=== PATIENT | female | born 1955 | race Hispanic/Latino ===

== ENCOUNTER 2016-10-27 22:11 | Emergency (ER) | payer OTHER ==
[~2016-10-27] VITALS: Ht 157.5 cm; Wt 80.8 kg
[~2016-10-27 22:11] MED LIST: ACID CONTROL MA20 MG PO; ACIPHEX20 MG OR; ACIPHEX20 MG PO; AMLODIPINE5 MG PO; AMOXICILLIN500 MG PO; AMOXICILLIN875 MG OR; BACTRIM DS1 TAB PO; BACTROBAN2 % EX; BENADRYL 50MG C50 MG PO; BL ADULT ASA81 MG OR; CARAFATE OR; CARAFATE1 GM/10 M1; CARAFATE1 GM/10 ML PO; CHOLESTEROL MED; CIPRO500 MG OR; COMBIVENT IN; DOES NOT KNOW MEDS; DOXYCYCL HYC100 MG PO; ELIMITE5 % EX; GLIPIZIDE10 MG PO; GLUCOPHAGE1000 MG OR; GLUCOPHAGE1000 MG PO; GLYBURID MCR3 MG OR; GLYCRON3 MG OR; Glucotrol PO; HELIDAC OR; HYDROCORTISONE30 GM TD; HYDROXYZ HCL25 MG OR; HYDROXYZ HCL25 MG PO; KEFLEX500 MG OR; LIDOCAINE5 % EX; LISINOPRIL10 MG OR; LISINOPRIL10 MG PO; LISINOPRIL20 MG PO; MEDDOSEPAK PO; MELOXICAM15 MG PO; METFORMIN500 MG PO; METRONIDAZOL500 MG PO; MONISTAT 3 COMB1 KI1 VA; MOTRIN800 MG/TAB PO; NORVASC PO; NOVOLIN 70/30 SC; PEPCID20 MG PO; PERCOCET 5/325M1 TAB OR; PREVACID15 M1 OR; PREVACID30 M2 OR; PREVPAC OR; PRILOSEC OTC20 MG OR; PRILOSEC20 MG OR; PRILOSEC20 MG PO; PRILOSEC20 MG/CAP PO; PROMETHAZINE25 MG OR; PROTONIX40 M2 PO; PROTONIX40 MG PO; RANITIDINE150 M1 OR; REGLAN10 MG OR; REGLAN10 MG PO; RELION 70/30 SC; ROBITUSS11 OR; SIMVASTATIN20 MG PO; TIZANIDINE4 MG PO; ULTRAM50 M1 OR; ULTRAM50 M1 PO; ULTRAM50 MG OR; ULTRAM50 MG PO; VISTARIL 50MG C50 MG OR; ZANTAC150 M1 OR; ZPAK PO; [UNRECOGNIZED DRUG - REMARK]; [UNRECOGNIZED DRUG - REMARK]
[2016-10-27] MEDS ORDERED: LISINOPRIL20 M1 PO (22:25)
[2016-10-27 23:22] LABS: IMMATURE GRANULOCYTES 0.1 % (0.0-1.0); MEAN CELL VOLUME 89.2 fL CALC (80.0-100.0); MEAN CORPUSCULAR HGB 29.7 pG CALC (26.0-32.0); MEAN CORPUSCULAR HGB CONC 33.3 g/L CALC (32.0-36.0); NEUT# 4.02 thou/uL (2.00-7.15); RED BLOOD COUNT 4.37 mill/uL (4.20-5.60); RED CELL DISTRI WIDTH 12.5 % (11.5-15.5)
[2016-10-27 23:42] LABS: ALBUMIN 4.2 g/dL (3.2-5.0); ALKALINE PHOSPHATASE 102 u/l (38-126); ANION GAP 17 (6-22 (CALC)); BILIRUBIN, TOTAL 0.3 mg/dL (0.0-1.4); BUN 18 mg/dL (7-17); BUN/CREATININE RATIO 26 (12-20 (CALC)); CALCIUM 9.9 mg/dL (8.4-10.2); CARBON DIOXIDE 25 mmol/l (22-30); CHLORIDE 100 mmol/l (95-108); CREATININE 0.7 mg/dL (0.5-1.0); GFR > 60 ML/MIN (>=60 (CALC)); GFR FOR AFR.AMER. > 60 ML/MIN (>=60 (CALC)); GLUCOSE 251 mg/dL (65-105); POTASSIUM 3.9 mmol/l (3.5-5.1); SGOT/AST 24 u/l (14-36); SGPT/ALT 41 u/l (9-52); SODIUM 138 mmol/l (137-146); TOTAL PROTEIN 7.1 g/dL (6.3-8.2)
[2016-10-27 23:58] VITALS: BP 157/87
== END 2016-10-27 23:59 | disposition home or self-care (01) | DRG 639 ==
LOC: ED 22:11
PROVIDERS: Emergency Medicine
DX: E11.65 Type 2 diabetes mellitus with hyperglycemia (principal); Z79.84 Long term (current) use of oral hypoglycemic drugs

== ENCOUNTER 2017-01-19 05:57 | Emergency (ER) | payer OTHER ==
[~2017-01-19] VITALS: Ht 157.5 cm; Wt 81.8 kg
[~2017-01-19 05:57] MED LIST changes: +LISINOPRIL20 M1 PO
[2017-01-19 08:06] LABS: HEMOGLOBIN 13.5 g/dl (12.0-16.0); IMMATURE GRANULOCYTES 0.4 % (0.0-1.0); MEAN CELL VOLUME 89.3 fL CALC (80.0-100.0); MEAN CORPUSCULAR HGB 30.1 pG CALC (26.0-32.0); MEAN CORPUSCULAR HGB CONC 33.8 g/L CALC (32.0-36.0); NEUT# 9.05 thou/uL (2.00-7.15); RED BLOOD COUNT 4.48 mill/uL (4.20-5.60); RED CELL DISTRI WIDTH 12.6 % (11.5-15.5)
[2017-01-19 08:24] LABS: ALKALINE PHOSPHATASE 106 u/l (38-126); ANION GAP 16 (6-22 (CALC)); BILIRUBIN, TOTAL 0.6 mg/dL (0.0-1.4); BUN 17 mg/dL (7-17); BUN/CREATININE RATIO 21 (12-20 (CALC)); CALCIUM 9.3 mg/dL (8.4-10.2); CARBON DIOXIDE 25 mmol/l (22-30); CHLORIDE 99 mmol/l (95-108); CREATININE 0.8 mg/dL (0.5-1.0); GFR > 60 ML/MIN (>=60 (CALC)); GFR FOR AFR.AMER. > 60 ML/MIN (>=60 (CALC)); GLUCOSE 374 mg/dL (65-105); POTASSIUM 4.1 mmol/l (3.5-5.1); SGOT/AST 28 u/l (14-36); SGPT/ALT 44 u/l (9-52); SODIUM 136 mmol/l (137-146); TOTAL PROTEIN 7.5 g/dL (6.3-8.2)
[2017-01-19 08:32] LABS: MYOGLOBIN 113 ng/mL (0 - 62)
[2017-01-19] MEDS ORDERED: TRAMADOL HYDROC50 MG PO (08:46)
[2017-01-19 09:24] VITALS: BP 134/74
== END 2017-01-19 09:24 | disposition home or self-care (01) | DRG 552 ==
LOC: ED 05:57
PROVIDERS: Emergency Medicine
DX: S16.1XXA Strain of muscle, fascia and tendon at neck level, initial encounter (principal); E11.65 Type 2 diabetes mellitus with hyperglycemia; I10 Essential (primary) hypertension; S20.219A Contusion of unspecified front wall of thorax, initial encounter; S80.212A Abrasion, left knee, initial encounter; S80.211A Abrasion, right knee, initial encounter; J45.909 Unspecified asthma, uncomplicated; V49.40XA Driver injured in collision with unspecified motor vehicles in traffic accident, initial encounter; Z79.84 Long term (current) use of oral hypoglycemic drugs

== ENCOUNTER 2017-07-19 18:39 | Emergency (ER) | payer OTHER ==
[~2017-07-19] VITALS: Ht 157.5 cm; Wt 85.0 kg
[~2017-07-19 18:39] MED LIST changes: +TRAMADOL HYDROC50 MG PO
[2017-07-19] MEDS ORDERED: ULTRAM50 M1 PO (20:04)
[2017-07-19 20:25] VITALS: BP 143/83
[2017-07-21] MEDS ORDERED: TESSALON PERLE100 MG PO (13:02)
== END 2017-07-19 20:25 | disposition home or self-care (01) | DRG 605 ==
LOC: ED 18:39
DX: S90.32XA Contusion of left foot, initial encounter (principal); E11.9 Type 2 diabetes mellitus without complications; I10 Essential (primary) hypertension; K21.9 Gastro-esophageal reflux disease without esophagitis; W13.2XXA Fall from, out of or through roof, initial encounter; Y92.008 Other place in unspecified non-institutional (private) residence as the place of occurrence of the external cause

== ENCOUNTER 2017-07-22 11:10 | Emergency (ER) | payer OTHER ==
[~2017-07-22] VITALS: Ht 157.5 cm; Wt 87.7 kg
[~2017-07-22 11:10] MED LIST changes: +TESSALON PERLE100 MG PO
[2017-07-22] MEDS ORDERED: BUTRANS10 MCG/HR TD (12:53)
[2017-07-22] MEDS ORDERED: ATORVASTATIN CA80 MG PO (12:53)
[2017-07-22] MEDS ORDERED: INVOKANA300 MG PO (12:56)
[2017-07-22] MEDS ORDERED: LEVEMIR100 UNIT/M SC (12:58)
[2017-07-22] MEDS ORDERED: LISINOPRIL20 M1 PO (12:59)
[2017-07-22] MEDS ORDERED: METFORMIN500 MG PO (13:00)
[2017-07-22] MEDS ORDERED: OMEPRAZOLE10 MG PO (13:01)
[2017-07-22 13:06] LABS: URINE BILIRUBIN - DIPSTICK NEGATIVE (NEGATIVE); URINE BLOOD DIPSTICK NEGATIVE (NEGATIVE); URINE COLOR YELLOW; URINE GLUCOSE - DIPSTICK 250 mg/dL (NEGATIVE); URINE KETONE NEGATIVE (NEGATIVE); URINE LEUK ESTERASE NEGATIVE (NEGATIVE); URINE NITRITE - DIPSTICK NEGATIVE (Negative); URINE PH 5.5 (4.5-8.0); URINE PROTEIN - DIPSTICK NEGATIVE (NEG-TRACE); URINE SPECIFIC GRAVITY 1.025; URINE UROBILINOGEN - DIPSTICK 0.2 E.U./dL (0.2)
[2017-07-22 13:09] LABS: URINE CLARITY CLEAR
[2017-07-22 13:10] LABS: HEMATOCRIT 44.1 % (37.0-47.0); HEMOGLOBIN 14.5 g/dl (12.0-16.0); IMMATURE GRANULOCYTES 1.7 % (0.0-1.0); MEAN CELL VOLUME 89.6 fL CALC (80.0-100.0); MEAN CORPUSCULAR HGB 29.5 pG CALC (26.0-32.0); MEAN CORPUSCULAR HGB CONC 32.9 g/L CALC (32.0-36.0); NEUT# 8.16 thou/uL (2.00-7.15); RED BLOOD COUNT 4.92 mill/uL (4.20-5.60); RED CELL DISTRI WIDTH 12.6 % (11.5-15.5)
[2017-07-22 13:29] LABS: ALBUMIN 4.6 g/dL (3.2-5.0); ALKALINE PHOSPHATASE 142 u/l (38-126); ANION GAP 19 (6-22 (CALC)); BILIRUBIN, TOTAL 0.5 mg/dL (0.0-1.4); BUN 19 mg/dL (8-23); BUN/CREATININE RATIO 25 (12-20 (CALC)); CARBON DIOXIDE 29 mmol/l (22-30); CHLORIDE 95 mmol/l (95-108); CREATININE 0.8 mg/dL (0.5-1.0); GFR > 60 ML/MIN (>=60 (CALC)); GFR FOR AFR.AMER. > 60 ML/MIN (>=60 (CALC)); LIPASE 123 u/l (23-300); POTASSIUM 4.2 mmol/l (3.5-5.1); SGOT/AST 36 u/l (9-36); SGPT/ALT 35 u/l (11-66); SODIUM 139 mmol/l (137-146); TOTAL PROTEIN 8.7 g/dL (6.3-8.2)
[2017-07-22] MEDS ORDERED: BENTYL10 MG PO (14:57)
[2017-07-22] MEDS ORDERED: ZOFRAN4 MG/TAB PO (14:57)
[2017-07-22 15:08] VITALS: BP 140/71
== END 2017-07-22 15:22 | disposition home or self-care (01) | DRG 392 ==
LOC: ED 11:10
PROVIDERS: Emergency Medicine
DX: K52.9 Noninfective gastroenteritis and colitis, unspecified (principal); K21.9 Gastro-esophageal reflux disease without esophagitis; R10.84 Generalized abdominal pain; R11.2 Nausea with vomiting, unspecified
CPT/HCPCS: Q9967

== ENCOUNTER 2017-08-14 00:06 | Inpatient (IN) | payer OTHER ==
[~2017-08-14] VITALS: Ht 157.5 cm; Wt 84.2 kg
[~2017-08-14 00:06] MED LIST changes: +ATORVASTATIN CA80 MG PO; +BENTYL10 MG PO; +BUTRANS10 MCG/HR TD; +INVOKANA300 MG PO; +LEVEMIR100 UNIT/M SC; +OMEPRAZOLE10 MG PO; +ZOFRAN4 MG/TAB PO
--- NOTE | 2017-08-14 00:06 | NUR ---
PT TO ROOM 9 BY EMS FOR CONTINUED PAIN TO LEFT FOOT S/P FALL 4 WEEKS AGO. PT HAS APPOINTMENT WITH ASSISTANT PARALEGAL ON TUE.
--- NOTE | 2017-08-14 00:40 | NUR ---
CLEANSED TOE WITH ALCOHOL PRIOR TO COLLECTING CULTURE AND SKIN SLUFFED OFF WHILE CLEANING. DR VILLATORO AWARE AND CHECKED TOE WHILE XRAY IN ROOM
--- NOTE | 2017-08-14 00:48 | NUR ---
PT NOT VERY KNOWLEDGEABLE ABOUT MEDICATIONS. STATES INSULIN THAT STARTS WITH A L, B/P MED THAT STARTS WITH L, PILL WITH G FOR DIABETES AND STATED SHE CANT TAKE THAT MUCH METFORM SHE TAKES 1000MG PILL AND CUTS IT IN HALF AND TAKES TWICE A DAY.
[2017-08-14 00:51] LABS: IMMATURE GRANULOCYTES 0.3 % (0.0-1.0); MEAN CELL VOLUME 88.9 fL CALC (80.0-100.0); MEAN CORPUSCULAR HGB CONC 32.6 g/L CALC (32.0-36.0); NEUT# 4.63 thou/uL (2.00-7.15); RED BLOOD COUNT 4.24 mill/uL (4.20-5.60); RED CELL DISTRI WIDTH 12.4 % (11.5-15.5)
[2017-08-14 00:53] LABS: HEMATOCRIT 37.7 % (37.0-47.0); HEMOGLOBIN 12.3 g/dl (12.0-16.0)
[2017-08-14 01:13] LABS: ALBUMIN 3.6 g/dL (3.2-5.0); ALKALINE PHOSPHATASE 111 u/l (38-126); ANION GAP 14 (6-22 (CALC)); BILIRUBIN, TOTAL 0.3 mg/dL (0.0-1.4); BUN 13 mg/dL (8-23); BUN/CREATININE RATIO 20 (12-20 (CALC)); CARBON DIOXIDE 27 mmol/l (22-30); CHLORIDE 100 mmol/l (95-108); CREATININE 0.7 mg/dL (0.5-1.0); GFR > 60 ML/MIN (>=60 (CALC)); GFR FOR AFR.AMER. > 60 ML/MIN (>=60 (CALC)); POTASSIUM 4.2 mmol/l (3.5-5.1); SGOT/AST 16 u/l (9-36); SGPT/ALT 26 u/l (11-66); SODIUM 136 mmol/l (137-146); TOTAL PROTEIN 6.9 g/dL (6.3-8.2)
--- NOTE | 2017-08-14 01:47 | NUR ---
REPORT GIVEN TO ASHLEIGH SOLIS. IV ZOSYN UP ALONG WITH FLUIDS.
--- NOTE | 2017-08-14 01:54 | NUR ---
Admission Note Report Given to: ASHLEIGH SOLIS Transported by: Wheelchair X Stretcher Transported with: X Nurse Transporter X Patent IV O2 Drying And Winding Supervisor
[2017-08-14 02:05] VITALS: BP 147/82
--- NOTE | 2017-08-14 02:10 | NUR ---
WHILE TAKING PT UPSTAIRS PT AND SHE ATTEMPTED TO STAND TO GET ON SCALE THE LEFT LOWER LEG UP TO MID [place]. PT WOULD NOT STAND ON LEFT FOOT AT ALL DUE TO PAIN. IRMA INQUIRED ABOUT PAIN MEDICATION, DR VILLATORO INFORMED ABOUT INFORMATION WILL ORDER MORPHINE FOR PAIN AND REQUESTED DOPPLER TO FOOT.
--- NOTE | 2017-08-14 02:30 | NUR ---
UNSUCCESFUL IN OBTAINING PULSE BY DOPPLER OR PALPATION. PALPABLE PULSE TO RIGHT FOOT. DR VILLATORO INFORMED.
--- NOTE | 2017-08-14 03:00 | NUR ---
PATIENT ADMITTED FROM ER VIA STRETCHER WITH ER STAFF IN ATTENDANCE. PATIENT ATTEMPTED TO TRANSFER FROM STRETCHER TO STANDING SCALE BUT WAS UNABLE DUE TO SEVERE LEFT FOOT PAIN. PATIENT ASSISTED TO BED-AWAKE ALERT AND ORIENTEDX3. PATIENT STATES THAT SHE CALL 911 TONIGHT DUE TO SEVERE LEFT FOOT/TOE PAIN. LEFT FOOT WAS INJURED SEVERAL WEEKS AGO AND PAIN GOT WORSE TODAY/TONIGHT. PAIN IS 10/10 ON PAIN SCALE WHEN FOOT IS DEPENDANT. LEFT FOOT IS COLD TO TOUCH AND UNABLE TO PALPATE OR DOPLER LEFT PEDAL PULSE. LEFT FOOT WITH SMALL ABRASION TO LEFT 5TH DIGIT-PHOTO TAKEN AND PLACED IN CHART. COVERED WITH BANDAID. LEFT FOOT ELEVATED ON PILLOW. LEFT POST POPLITEAL PULSE IS PRESENT. RIGHT FOOT IS WARM WITH GOOD PEDAL PULSE. IV SITE TO LEFT AC INTACT AND REDRESS DUE TO LEAKAGE AT SITE AND IVF NS PATENT AND INFUSING AT 125CC/HR. ZOSYN INFUSING ORDERED. IV SITE IS HEALTHY WITH GOOD BLOOD RETURN. PATIENT LUNGS ARE CLEAR. LAST B M WAS Tuesday08/13/17. VOIDING QS YELLOW URINE ON BSC. PATIENT AND S/O ORIENTED TO ROOM AND SUROUNDINGS-INSTRUCTED ON USE OF NURSE CALL LIGHT SYSTEM, TV REMOTE AND PHONE. SAFETY PRECAUTIONS REINFORCED.CALL LIGHT IN REACH. WILL CONT TO MONITOR.
[2017-08-14 04:35] VITALS: BP 167/93
--- NOTE | 2017-08-14 04:52 | NUR ---
PATIENT RESTING IN BED. ASSISTED TO BSC TO VOID AND THEN BACK TO BED. AGAIN LEFT FOOT IS VERY PAINFUL-THROBBING PAIN 10/10 WHEN DEPENDANT. FOOT IS NOT COLD EARLIER BUT STILL NO PEDAL PULSE PRESENT. ASSISTED BACK TO BED AND LEFT FOOT ELEVATED. MEDICATED FOR PAIN WITH MORPHINE 2MG IVP ORDERED FOR PAIN. PATIENT WITH HX OF MRSA AND NASAL SWAB WAS OBTAINED AND SENT TO LAB. CONTACT PRECAUTIONS IN PLACE. CALL LIGHT IN REACH. WILL CONT TO MONITOR.
[2017-08-14 07:17] VITALS: BP 158/76
--- NOTE | 2017-08-14 07:25 | NUR ---
RECEIVED BEDSIDE REPORT FROM IRMA SOTELO. RESTING IN SUPINE POSITION WITH LEFT FOOT ELEVATED ON PILLOW. RESPS EVEN AND UNLABORED ON ROOM AIR. #20 LAC INFUSING WITHOUT DIFFICULTY, SITE APPEARS HEALTHY. REPORTS PAIN CONTINUES IN LEFT FOOT, WILL MEDICATE PER MAR. PLAN OF CARE DISCUSSED. SAFETY PRECAUTIONS REINFORCED. VISITOR AT BEDSIDE. BED IN LOWEST POSITION WITH WHEELS LOCKED. CALL LIGHT WITHIN REACH. ENCOURAGED PT AND VISITOR TO CALL FOR ANY NEEDS.
--- NOTE | 2017-08-14 09:25 | NUR ---
DR FREY AT BEDSIDE, NEW ORDERS RECEIVED.
[2017-08-14 10:02] LABS: CHOLESTEROL HDL RATIO 5.5 (<4.4 (CALC))
--- NOTE | 2017-08-14 10:05 | NUR ---
TO ULTRASOUND IN STABLE CONDITION VIA WHEELCHAIR ACCOMPANIED BY NICOLE OLIVAS.
--- NOTE | 2017-08-14 10:40 | NUR ---
RETURNED FROM ULTRASOUND VIA WHEELCHAIR ACCOMPANIED BY NICOLE OLIVAS.
--- NOTE | 2017-08-14 16:07 | NUR ---
IN HIGH FOWLERS WITH LEFT FOOT ELEVATED ON PILLOWS, VISITOR AT BEDSIDE. RESPS EVEN AND UNLABORED ON ROOM AIR. VOICES NO NEEDS AT THIS TIME. CALL LIGHT WITHIN REACH. WILL CONTINUE TO MONITOR.
[2017-08-14 16:30] VITALS: BP 139/83
[2017-08-14 20:00] VITALS: BP 145/77
--- NOTE | 2017-08-14 20:18 | NUR ---
PT IN BED WITH EYES CLOSED, RESPONDS EASILY TO VERBAL COMMAND, A/O X3, RESPIRATIONS EVEN AND UNLABORED ON RA. C/O LEFT FOOT PAIN 8/10, TRAMADOL PROVIDED PER DR'S ORDERS. PO FLUIDS PROVIDED. ENCOURAGED TO USE CALL LIGHT FOR ASSISTANCE. WILL CONTINUE TO MONITOR.
--- NOTE | 2017-08-14 23:16 | NUR ---
PATIENT RESTING IN BED WITH LEFT FOOT ELEVATED ON PILLOW. AWAKE ALERT AND ORIENTEDX3. LEFT FOOT WITHOUT PALPABLE PEDAL PULSE, NO SWELLING NOTED. DISCOLORATION TO 5TH DIGIT AND SIDE OF THE LEFT FOOT. STILL IS PAINFUL. IV SITE TO LEFT AC INTACT WITH DOXYCYCLINE INFUSING AT THIS TIME. SITE APPEARS HEALTHY. SAFETY PRECAUTIONS REINFORCED. CALL LIGHT IN REACH. WILL CONT TO MONITOR.
--- NOTE | 2017-08-15 00:11 | NUR ---
PATIENT APPEARS SLEEPING AT THIS TIME WITH EYE CLOSED. CALL LIGHT IN REACH. WILL CONT TO MONITOR.
--- NOTE | 2017-08-15 03:51 | NUR ---
PATIENT APPEARS SLEEPING AT THIS TIME WITH EYES CLOSED AND RESP EVEN AND UNLABORED. LEFT FOOT REMAINS ELEVATED ON PILLOW. CALL LIGHT IN REACH. WILL CONT TO MONITOR.
[2017-08-15 04:18] VITALS: BP 160/81
[2017-08-15 04:38] LABS: ANION GAP 17 (6-22 (CALC)); BUN 13 mg/dL (8-23); BUN/CREATININE RATIO 18 (12-20 (CALC)); CARBON DIOXIDE 25 mmol/l (22-30); CHLORIDE 104 mmol/l (95-108); CREATININE 0.7 mg/dL (0.5-1.0); GFR > 60 ML/MIN (>=60 (CALC)); GFR FOR AFR.AMER. > 60 ML/MIN (>=60 (CALC)); POTASSIUM 4.1 mmol/l (3.5-5.1); SODIUM 141 mmol/l (137-146)
--- NOTE | 2017-08-15 04:38 | NUR ---
PATIENT RESTING IN BED-LAB WORK DRAWN. AWAKE ALERT AND ORIENTEDX3. PATIENT REQUESTING IV SITE CHANGE-PAINFUL AND IN THE AC-SITE D/C WITH CATH INTACT. NEW IV SITE STARTED TO LEFT FOREARM-#[id number] WITH GOOD BLOOD RETURN. PATIENT MEDICATED WITH ULTRAM 50MG PO FOR 10/10 NLEFT FOOT PAIN. LEFT FOOT REMAINS ELEVATED. PATIENT VOIDING QS YELLOW URINE IN BSC. SAFETY PRECAUTIONS REINFORCED. CALL LIGHT IN REACH. WILL CONT TO MONITOR.
[2017-08-15 04:46] LABS: HEMATOCRIT 36.3 % (37.0-47.0); HEMOGLOBIN 11.8 g/dl (12.0-16.0); MEAN CELL VOLUME 89.2 fL CALC (80.0-100.0); MEAN CORPUSCULAR HGB CONC 32.5 g/L CALC (32.0-36.0); RED BLOOD COUNT 4.07 mill/uL (4.20-5.60); RED CELL DISTRI WIDTH 12.5 % (11.5-15.5)
--- NOTE | 2017-08-15 06:08 | NUR ---
PATIENT UP TO THE BSC-LARGE FORMED LIGHT BROWN STOOL AND BACK TO THE BED. VOIDING QS YELLOW URINE. VOMITTED SMALL AMT OF YELLOW FLUID. RESTING IN BED WITH LEFT FOOT ELEVATED. PATIENT STATES NO RELIEFT FROM ULTRAM-STILL 10/10 ON PAIN SCALE. C/O LEFT FOOT PAIN AND NOW TOOTH PAIN. OFFERED MORPHINE BUT PATIENT REFUSED. CALL LIGHT IN REACH. WILL CONT TO MONITOR.
--- NOTE | 2017-08-15 07:15 | NUR ---
REPORT RECEIVED FROM ASHLEIGH SOLIS;PT RESTING IN SUPINE POSITION;INTRODUCED SELF TO PT AND POC DISCUSSED;LEFT FOOT ELEVATED ON X1 PILLOW,COOL TO TOUCH;PT DENIES ANY NEEDS AT THIS TIME AND IS ENCOURAGED TO CALL FOR ASSISTANCE IF NEEDED;FALL PRECAUTIONS IN PLACE WITH BED IN THE LOWEST POSITION;CONTACT PRECAUTIONS NOTED FOR HX OF MRSA;ENCOURAGED TO CALL FOR ASSISTANCE IF NEEDED;CALL LIGHT IN REACH;WILL CONTINUE TO MONITOR
[2017-08-15 08:09] VITALS: BP 137/87
--- NOTE | 2017-08-15 08:15 | NUR ---
PT RESTING IN SEMI FOWLERS POSITION;VS OBTAINED AND ASSESSMENT COMPLETED;RESPIRATIONS EVEN AND UNLABORED ON RA,CLEAR LUNG SOUNDS;ABDOMEN SOFT ON PALPATION AND ACTIVE IN ALL 4 QUADRANTS;STRONG PEDAL PULSE NOTED TO RIGHT FOOT;PEDAL PULSE TO LEFT FOOT UNABLE TO BE DOPPLERED,COOL AND PAINFUL TO TOUCH;ELEVATED ON X1 PILLOW;SMALL ABRASION NOTED TO LEFT FOOT;PAIN SCALE AND REPORTING EDUCATED AND PT VERBALIZES UNDERSTANDING;#22G TO LEFT FOREARM FLUSHED AND PATENT,SITE APPEARS HEALTHY;CONTACT PRECAUTIONS FOR HX OF MRSA IN PLACE;ALL SAFETY PRECAUTIONS REINFORCED;PT ENCOURAGED TO CALL FOR ASSISTANCE IF NEEDED;CALL LIGHT IN REACH;WILL CONTINUE TO MONITOR
--- NOTE | 2017-08-15 08:40 | NUR ---
OFFICE CALLED FOR CONSULT AND VOICEMAIL LEFT AT THIS TIME
[2017-08-15 09:17] LABS: MAGNESIUM 1.6 mg/dL (1.6-2.3)
--- NOTE | 2017-08-15 10:10 | NUR ---
IV SITE FOUND OCCULDED;SITE REMOVED WITH CATHETER INTACT AND NEW #22G STARTED TO RIGHT WRIST,FLUSHED AND PATENT;WILL CONTINUE TO MONITOR
--- NOTE | 2017-08-15 11:10 | NUR ---
SECOND VOICEMAIL LEFT FOR
--- NOTE | 2017-08-15 11:20 | NUR ---
PT RESTING IN SEMI FOWLERS POSITION;COMPLAINS OF IV SITE PAIN,SITE TO BE REMOVED PER PATIENT REQUEST;RESPIRATIONS EVEN AND UNLABORED ON RA;PT COMPLAINS OF LEFT FOOT PAIN RATING 8/10 ON THE PAIN SCALE BUT DENIES THE NEED FOR PAIN MEDICATION;CONTINUED ELEVATION OF LEFT FOOT;NEW IV SITE TO BE STARTED;FALL PRECAUTIONS IN PLACE;CALL LIGHT IN REACH;WILL CONTINUE TO MONITOR
[2017-08-15] MEDS ORDERED: METFORMIN1000 MG PO (12:13)
--- NOTE | 2017-08-15 12:32 | NUR ---
1 UNSUCCESSFUL ATTEMPT AT NEW IV SITE BY LIN MAHER RN;PT DENIES THE NEED FOR A NEW SITE STATING "THE OTHER ONE IS FINE";#22G TO RIGHT WRIST FLUSHED,PATENT,AND ABX RE-STARTED;WILL CONTINUE TO MONITOR
--- NOTE | 2017-08-15 13:20 | NUR ---
PT RE-POSITIONED BACK INTO BED WITH FAMILY AT BEDSIDE;PT AWARE OF PENDING TRANSFER TO [facility];ALL QUESTIONS ANSWERED;WILL CONTINUE TO MONITOR
--- NOTE | 2017-08-15 13:28 | NUR ---
Order for P.T. evaluation cancelled by AMANDA. Patient is being trenaferred to [facility].
--- NOTE | 2017-08-15 13:54 | NUR ---
ETA ON TRANSFER TO [facility] VIA [facility] 2 HOURS DUE TO MULTIPLE CRITICAL TRANSFERS OUT OF THE ED
[2017-08-15 15:00] VITALS: BP 135/71
--- NOTE | 2017-08-15 15:52 | NUR ---
PT TRANSFERRED IN STABLE CONDITION VIA [facility] TO [facility]
--- NOTE | 2017-08-15 16:05 | NUR ---
REPORT CALLED TO ASHLEIGH CARD AT [facility];PT TO BE TRANSFERRED TO ROOM 432
== END 2017-08-15 15:50 | DRG 300 ==
LOC: ED 00:06 → ED-I 01:19 → ED 01:26 → MS2 01:27
PROVIDERS: Emergency Medicine; Nurse Practitioner Family; ADMIT Internal Medicine; ATTEND Internal Medicine
DX: E11.52 Type 2 diabetes mellitus with diabetic peripheral angiopathy with gangrene (principal); I96 Gangrene, not elsewhere classified; E11.621 Type 2 diabetes mellitus with foot ulcer; E11.65 Type 2 diabetes mellitus with hyperglycemia; L03.116 Cellulitis of left lower limb; E11.628 Type 2 diabetes mellitus with other skin complications; L97.529 Non-pressure chronic ulcer of other part of left foot with unspecified severity; I10 Essential (primary) hypertension; K21.9 Gastro-esophageal reflux disease without esophagitis; M19.90 Unspecified osteoarthritis, unspecified site; F41.9 Anxiety disorder, unspecified; F32.9 Major depressive disorder, single episode, unspecified; S91.115A Laceration without foreign body of left lesser toe(s) without damage to nail, initial encounter; W19.XXXA Unspecified fall, initial encounter; Z79.4 Long term (current) use of insulin; Z87.891 Personal history of nicotine dependence
CPT/HCPCS: J1650

== ENCOUNTER 2017-08-30 19:56 | Emergency (ER) | payer OTHER ==
[~2017-08-30] VITALS: Ht 157.5 cm; Wt 81.8 kg
[~2017-08-30 19:56] MED LIST changes: +METFORMIN1000 MG PO
[2017-08-30] MEDS ORDERED: MOTRIN400 MG PO (21:39)
[2017-08-30] MEDS ORDERED: TRAMADOL HYDROC50 MG PO (21:39)
[2017-08-30] MEDS ORDERED: CEPHALEXIN500 M1 PO (21:39)
[2017-08-30 22:40] VITALS: BP 163/83
== END 2017-08-30 22:40 | disposition home or self-care (01) | DRG 603 ==
LOC: ED 19:56
DX: L03.032 Cellulitis of left toe (principal); M25.475 Effusion, left foot; M79.672 Pain in left foot; Z91.81 History of falling

== ENCOUNTER 2017-09-10 08:22 | Emergency (ER) | payer OTHER ==
[~2017-09-10] VITALS: Ht 157.5 cm; Wt 85.0 kg
[~2017-09-10 08:22] MED LIST changes: +CEPHALEXIN500 M1 PO; +MOTRIN400 MG PO
[2017-09-10 09:08] LABS: HEMATOCRIT 35.8 % (37.0-47.0); HEMOGLOBIN 11.6 g/dl (12.0-16.0); IMMATURE GRANULOCYTES 0.3 % (0.0-1.0); MEAN CELL VOLUME 88.6 fL CALC (80.0-100.0); MEAN CORPUSCULAR HGB 28.7 pG CALC (26.0-32.0); MEAN CORPUSCULAR HGB CONC 32.4 g/L CALC (32.0-36.0); NEUT# 4.31 thou/uL (2.00-7.15); RED BLOOD COUNT 4.04 mill/uL (4.20-5.60); RED CELL DISTRI WIDTH 13.2 % (11.5-15.5)
[2017-09-10 09:27] LABS: ALBUMIN 3.9 g/dL (3.2-5.0); ALKALINE PHOSPHATASE 92 u/l (38-126); AMYLASE 69 u/l (30-110); ANION GAP 16 (6-22 (CALC)); BILIRUBIN, TOTAL 0.4 mg/dL (0.0-1.4); BUN 10 mg/dL (8-23); BUN/CREATININE RATIO 17 (12-20 (CALC)); CARBON DIOXIDE 25 mmol/l (22-30); CHLORIDE 104 mmol/l (95-108); CREATININE 0.6 mg/dL (0.5-1.0); GFR > 60 ML/MIN (>=60 (CALC)); GFR FOR AFR.AMER. > 60 ML/MIN (>=60 (CALC)); LIPASE 88 u/l (23-300); POTASSIUM 4.1 mmol/l (3.5-5.1); SGOT/AST 26 u/l (9-36); SGPT/ALT 31 u/l (11-66); SODIUM 141 mmol/l (137-146); TOTAL PROTEIN 7.7 g/dL (6.3-8.2)
[2017-09-10 09:38] LABS: MYOGLOBIN 51 ng/mL (0 - 62)
[2017-09-10 09:57] LABS: URINE BILIRUBIN - DIPSTICK NEGATIVE (NEGATIVE); URINE BLOOD DIPSTICK NEGATIVE (NEGATIVE); URINE COLOR YELLOW; URINE GLUCOSE - DIPSTICK 100 mg/dL (NEGATIVE); URINE KETONE NEGATIVE (NEGATIVE); URINE LEUK ESTERASE NEGATIVE (NEGATIVE); URINE NITRITE - DIPSTICK NEGATIVE (Negative); URINE PH 5.5 (4.5-8.0); URINE PROTEIN - DIPSTICK TRACE mg/dL (NEG-TRACE); URINE SPECIFIC GRAVITY >=1.030; URINE UROBILINOGEN - DIPSTICK 0.2 E.U./dL (0.2)
[2017-09-10 10:14] LABS: URINE CLARITY CLEAR
[2017-09-10] MEDS ORDERED: TORADOL PO (10:17)
[2017-09-10 10:20] VITALS: BP 156/70
== END 2017-09-10 10:27 | disposition home or self-care (01) | DRG 313 ==
LOC: ED 08:22
PROVIDERS: Emergency Medicine
DX: R07.89 Other chest pain (principal); E11.9 Type 2 diabetes mellitus without complications; F32.9 Major depressive disorder, single episode, unspecified; F41.9 Anxiety disorder, unspecified; I10 Essential (primary) hypertension; K21.9 Gastro-esophageal reflux disease without esophagitis; M19.90 Unspecified osteoarthritis, unspecified site

== ENCOUNTER 2017-10-27 02:25 | Emergency (ER) | payer OTHER ==
[~2017-10-27] VITALS: Ht 157.5 cm; Wt 81.8 kg
[~2017-10-27 02:25] MED LIST changes: +TORADOL PO
[2017-10-27 03:14] LABS: HEMATOCRIT 36.7 % (37.0-47.0); IMMATURE GRANULOCYTES 0.4 % (0.0-1.0); MEAN CELL VOLUME 88.6 fL CALC (80.0-100.0); MEAN CORPUSCULAR HGB CONC 32.7 g/L CALC (32.0-36.0); NEUT# 4.4 thou/uL (2.00-7.15); RED BLOOD COUNT 4.14 mill/uL (4.20-5.60); RED CELL DISTRI WIDTH 13.4 % (11.5-15.5)
[2017-10-27 03:15] LABS: URINE BILIRUBIN - DIPSTICK NEGATIVE (NEGATIVE); URINE BLOOD DIPSTICK NEGATIVE (NEGATIVE); URINE COLOR YELLOW; URINE GLUCOSE - DIPSTICK NEGATIVE (NEGATIVE); URINE KETONE NEGATIVE (NEGATIVE); URINE LEUK ESTERASE NEGATIVE (NEGATIVE); URINE NITRITE - DIPSTICK NEGATIVE (Negative); URINE PROTEIN - DIPSTICK NEGATIVE (NEG-TRACE); URINE SPECIFIC GRAVITY <=1.005; URINE UROBILINOGEN - DIPSTICK 0.2 E.U./dL (0.2)
[2017-10-27 03:18] LABS: URINE CLARITY CLEAR
[2017-10-27 03:27] LABS: ALBUMIN 4.1 g/dL (3.2-5.0); ALKALINE PHOSPHATASE 102 u/l (38-126); ANION GAP 12 (6-22 (CALC)); BILIRUBIN, TOTAL 0.3 mg/dL (0.0-1.4); BUN 16 mg/dL (8-23); BUN/CREATININE RATIO 20 (12-20 (CALC)); CARBON DIOXIDE 26 mmol/l (22-30); CHLORIDE 104 mmol/l (95-108); CREATININE 0.8 mg/dL (0.5-1.0); GFR > 60 ML/MIN (>=60 (CALC)); GFR FOR AFR.AMER. > 60 ML/MIN (>=60 (CALC)); POTASSIUM 3.7 mmol/l (3.5-5.1); SGOT/AST 22 u/l (9-36); SGPT/ALT 32 u/l (11-66); SODIUM 138 mmol/l (137-146); TOTAL PROTEIN 7.4 g/dL (6.3-8.2)
[2017-10-27 03:37] LABS: MYOGLOBIN 51 ng/mL (0 - 62)
[2017-10-27 05:33] VITALS: BP 160/66
== END 2017-10-27 05:34 | disposition home or self-care (01) | DRG 149 ==
LOC: ED 02:25
PROVIDERS: Emergency Medicine
DX: R42 Dizziness and giddiness (principal); R51 Headache; M79.89 Other specified soft tissue disorders; K21.9 Gastro-esophageal reflux disease without esophagitis; K44.9 Diaphragmatic hernia without obstruction or gangrene; E11.9 Type 2 diabetes mellitus without complications; I10 Essential (primary) hypertension; F41.9 Anxiety disorder, unspecified; F32.9 Major depressive disorder, single episode, unspecified

== ENCOUNTER 2017-10-28 23:17 | Emergency (ER) | payer OTHER ==
[~2017-10-28] VITALS: Ht 157.5 cm; Wt 114.0 kg
[2017-10-29 00:03] LABS: HEMATOCRIT 34.1 % (37.0-47.0); IMMATURE GRANULOCYTES 0.3 % (0.0-1.0); MEAN CELL VOLUME 89.7 fL CALC (80.0-100.0); MEAN CORPUSCULAR HGB 28.9 pG CALC (26.0-32.0); MEAN CORPUSCULAR HGB CONC 32.3 g/L CALC (32.0-36.0); NEUT# 4.64 thou/uL (2.00-7.15); RED BLOOD COUNT 3.8 mill/uL (4.20-5.60); RED CELL DISTRI WIDTH 13.6 % (11.5-15.5)
[2017-10-29 00:23] LABS: ALBUMIN 3.9 g/dL (3.2-5.0); ALKALINE PHOSPHATASE 91 u/l (38-126); ANION GAP 12 (6-22 (CALC)); BILIRUBIN, TOTAL 0.2 mg/dL (0.0-1.4); BUN 18 mg/dL (8-23); BUN/CREATININE RATIO 21 (12-20 (CALC)); CARBON DIOXIDE 27 mmol/l (22-30); CHLORIDE 105 mmol/l (95-108); CREATININE 0.9 mg/dL (0.5-1.0); GFR > 60 ML/MIN (>=60 (CALC)); GFR FOR AFR.AMER. > 60 ML/MIN (>=60 (CALC)); POTASSIUM 3.8 mmol/l (3.5-5.1); SGOT/AST 30 u/l (9-36); SGPT/ALT 29 u/l (11-66); SODIUM 140 mmol/l (137-146); TOTAL PROTEIN 7.4 g/dL (6.3-8.2)
[2017-10-29 00:35] LABS: MYOGLOBIN 76 ng/mL (0 - 62)
[2017-10-29 01:20] LABS: URINE BILIRUBIN - DIPSTICK NEGATIVE (NEGATIVE); URINE BLOOD DIPSTICK NEGATIVE (NEGATIVE); URINE COLOR YELLOW; URINE GLUCOSE - DIPSTICK NEGATIVE (NEGATIVE); URINE KETONE NEGATIVE (NEGATIVE); URINE LEUK ESTERASE NEGATIVE (NEGATIVE); URINE NITRITE - DIPSTICK NEGATIVE (Negative); URINE PH 5.5 (4.5-8.0); URINE PROTEIN - DIPSTICK NEGATIVE (NEG-TRACE); URINE UROBILINOGEN - DIPSTICK 0.2 E.U./dL (0.2)
[2017-10-29 01:28] LABS: URINE CLARITY CLEAR
[2017-10-29 03:54] LABS: MYOGLOBIN 56 ng/mL (0 - 62)
[2017-10-29 04:13] VITALS: BP 149/75
== END 2017-10-29 04:24 | disposition home or self-care (01) | DRG 313 ==
LOC: ED 23:17
PROVIDERS: Emergency Medicine
DX: R07.89 Other chest pain (principal); E11.9 Type 2 diabetes mellitus without complications; I10 Essential (primary) hypertension; K21.9 Gastro-esophageal reflux disease without esophagitis; F41.9 Anxiety disorder, unspecified; F32.9 Major depressive disorder, single episode, unspecified

== ENCOUNTER 2017-10-30 22:39 | Emergency (ER) | payer OTHER ==
[~2017-10-30] VITALS: Ht 157.5 cm; Wt 86.0 kg
[2017-10-30 23:40] LABS: URINE BILIRUBIN - DIPSTICK NEGATIVE (NEGATIVE); URINE BLOOD DIPSTICK NEGATIVE (NEGATIVE); URINE CLARITY CLEAR; URINE COLOR YELLOW; URINE GLUCOSE - DIPSTICK NEGATIVE (NEGATIVE); URINE KETONE NEGATIVE (NEGATIVE); URINE LEUK ESTERASE NEGATIVE (NEGATIVE); URINE NITRITE - DIPSTICK NEGATIVE (Negative); URINE PROTEIN - DIPSTICK NEGATIVE (NEG-TRACE); URINE SPECIFIC GRAVITY >=1.030; URINE UROBILINOGEN - DIPSTICK 0.2 E.U./dL (0.2)
[2017-10-31 00:45] LABS: IMMATURE GRANULOCYTES 0.3 % (0.0-1.0); MEAN CELL VOLUME 90.1 fL CALC (80.0-100.0); MEAN CORPUSCULAR HGB 29.1 pG CALC (26.0-32.0); MEAN CORPUSCULAR HGB CONC 32.3 g/L CALC (32.0-36.0); NEUT# 9.64 thou/uL (2.00-7.15); RED BLOOD COUNT 4.67 mill/uL (4.20-5.60); RED CELL DISTRI WIDTH 13.9 % (11.5-15.5)
[2017-10-31 00:47] LABS: HEMATOCRIT 42.1 % (37.0-47.0); HEMOGLOBIN 13.6 g/dl (12.0-16.0)
[2017-10-31 01:13] LABS: ALBUMIN 3.7 g/dL (3.2-5.0); ALKALINE PHOSPHATASE 84 u/l (38-126); AMYLASE 61 u/l (30-110); ANION GAP 15 (6-22 (CALC)); BILIRUBIN, TOTAL 0.3 mg/dL (0.0-1.4); BUN 18 mg/dL (8-23); BUN/CREATININE RATIO 23 (12-20 (CALC)); CARBON DIOXIDE 24 mmol/l (22-30); CHLORIDE 103 mmol/l (95-108); CREATININE 0.8 mg/dL (0.5-1.0); GFR > 60 ML/MIN (>=60 (CALC)); GFR FOR AFR.AMER. > 60 ML/MIN (>=60 (CALC)); LIPASE 100 u/l (23-300); POTASSIUM 4.5 mmol/l (3.5-5.1); SGOT/AST 22 u/l (9-36); SGPT/ALT 32 u/l (11-66); SODIUM 138 mmol/l (137-146); TOTAL PROTEIN 6.9 g/dL (6.3-8.2)
[2017-10-31] MEDS ORDERED: PROTONIX40 MG PO (01:26)
[2017-10-31 01:45] VITALS: BP 137/87
== END 2017-10-31 01:45 | disposition home or self-care (01) | DRG 392 ==
LOC: ED 22:39
PROVIDERS: Emergency Medicine
DX: R10.13 Epigastric pain (principal); K21.9 Gastro-esophageal reflux disease without esophagitis; E11.9 Type 2 diabetes mellitus without complications; I10 Essential (primary) hypertension; F41.9 Anxiety disorder, unspecified; F32.9 Major depressive disorder, single episode, unspecified

== ENCOUNTER 2018-04-09 19:53 | Emergency (ER) | payer OTHER ==
[~2018-04-09] VITALS: Ht 157.5 cm; Wt 86.2 kg
[~2018-04-09 19:53] MED LIST changes: +NAPROSYN500 MG PO
[2018-04-09 21:10] LABS: URINE BILIRUBIN - DIPSTICK NEGATIVE (NEGATIVE); URINE BLOOD DIPSTICK NEGATIVE (NEGATIVE); URINE COLOR YELLOW; URINE GLUCOSE - DIPSTICK 250 mg/dL (NEGATIVE); URINE KETONE NEGATIVE (NEGATIVE); URINE LEUK ESTERASE NEGATIVE (NEGATIVE); URINE PH 5.5 (4.5-8.0); URINE PROTEIN - DIPSTICK 30 mg/dL (NEG-TRACE); URINE SPECIFIC GRAVITY 1.025; URINE UROBILINOGEN - DIPSTICK 0.2 E.U./dL (0.2)
[2018-04-09 21:11] LABS: HEMATOCRIT 42.2 % (37.0-47.0); HEMOGLOBIN 13.9 g/dl (12.0-16.0); IMMATURE GRANULOCYTES 0.3 % (0.0-5.0); MEAN CELL VOLUME 88.1 fL CALC (80.0-100.0); MEAN CORPUSCULAR HGB CONC 32.9 g/L CALC (32.0-36.0); NEUT# 8.49 thou/uL (2.00-7.15); RED BLOOD COUNT 4.79 mill/uL (4.20-5.60)
[2018-04-09 21:12] LABS: URINE CLARITY CLOUDY; URINE NITRITE - DIPSTICK POSITIVE (Negative)
[2018-04-09 21:23] LABS: ALBUMIN 3.8 g/dL (3.2-5.0); ALKALINE PHOSPHATASE 105 u/l (38-126); AMYLASE 51 u/l (30-110); ANION GAP 14 (6-22 (CALC)); BILIRUBIN, TOTAL 0.3 mg/dL (0.0-1.4); BUN 18 mg/dL (8-23); BUN/CREATININE RATIO 22 (12-20 (CALC)); CARBON DIOXIDE 25 mmol/l (22-30); CHLORIDE 103 mmol/l (95-108); CREATININE 0.8 mg/dL (0.5-1.0); GFR > 60 ML/MIN (>=60 (CALC)); GFR FOR AFR.AMER. > 60 ML/MIN (>=60 (CALC)); LIPASE 125 u/l (23-300); POTASSIUM 4.1 mmol/l (3.5-5.1); SGOT/AST 23 u/l (9-36); SODIUM 138 mmol/l (137-146); TOTAL PROTEIN 7.1 g/dL (6.3-8.2)
[2018-04-09 21:30] LABS: URINE BACTERIA MANY hpf; URINE SQUAMOUS EPITHELIAL CELL FEW EPI/hpf (0-FEW)
[2018-04-09] MEDS ORDERED: TORADOL PO (23:07)
[2018-04-09] MEDS ORDERED: PHENERGAN25 MG/TAB PO (23:07)
[2018-04-09] MEDS ORDERED: BACTRIM DS1 TAB PO (23:07)
[2018-04-09 23:28] VITALS: BP 135/69
== END 2018-04-09 23:28 | disposition home or self-care (01) ==
LOC: ED 19:53
PROVIDERS: Family Medicine
DX: K52.9 Noninfective gastroenteritis and colitis, unspecified (principal); N39.0 Urinary tract infection, site not specified; R10.84 Generalized abdominal pain; B96.89 Other specified bacterial agents as the cause of diseases classified elsewhere

== ENCOUNTER 2018-05-19 19:58 | Emergency (ER) | payer OTHER ==
[~2018-05-19] VITALS: Ht 157.5 cm; Wt 81.8 kg
[~2018-05-19 19:58] MED LIST changes: +PHENERGAN25 MG/TAB PO
[2018-05-19 20:45] VITALS: BP 153/87
== END 2018-05-19 20:45 | disposition home or self-care (01) ==
LOC: ED 19:58
DX: M19.071 Primary osteoarthritis, right ankle and foot (principal); E11.9 Type 2 diabetes mellitus without complications; I10 Essential (primary) hypertension; F41.9 Anxiety disorder, unspecified; F32.9 Major depressive disorder, single episode, unspecified; K21.9 Gastro-esophageal reflux disease without esophagitis; K25.9 Gastric ulcer, unspecified as acute or chronic, without hemorrhage or perforation; M79.671 Pain in right foot

== ENCOUNTER 2018-05-23 18:36 | Emergency (ER) | payer OTHER ==
[~2018-05-23] VITALS: Ht 157.5 cm; Wt 86.4 kg
[2018-05-23 19:21] LABS: HEMATOCRIT 38.6 % (37.0-47.0); HEMOGLOBIN 12.3 g/dl (12.0-16.0); IMMATURE GRANULOCYTES 0.2 % (0.0-5.0); MEAN CORPUSCULAR HGB 28.7 pG CALC (26.0-32.0); MEAN CORPUSCULAR HGB CONC 31.9 g/L CALC (32.0-36.0); NEUT# 6.32 thou/uL (2.00-7.15); RED BLOOD COUNT 4.29 mill/uL (4.20-5.60); RED CELL DISTRI WIDTH 13.2 % (11.5-15.5)
[2018-05-23 19:34] LABS: ANION GAP 16 (6-22 (CALC)); BUN 17 mg/dL (8-23); BUN/CREATININE RATIO 24 (12-20 (CALC)); CARBON DIOXIDE 26 mmol/l (22-30); CHLORIDE 102 mmol/l (95-108); CREATININE 0.7 mg/dL (0.5-1.0); GFR > 60 ML/MIN (>=60 (CALC)); GFR FOR AFR.AMER. > 60 ML/MIN (>=60 (CALC)); POTASSIUM 4.6 mmol/l (3.5-5.1); SODIUM 140 mmol/l (137-146)
[2018-05-23 20:52] LABS: ACT PARTIAL THROMBO TIME 24.4 SECONDS (20.0-32.5); INTERNATIONAL NORMALIZED RATIO 0.9 RATIO (0.7-1.3); PROTHROMBIN TIME 9.5 SECONDS (9.0-12.5)
[2018-05-24 00:30] VITALS: BP 159/75
== END 2018-05-24 00:30 ==
LOC: ED 18:36
PROVIDERS: Emergency Medicine; Family Medicine
DX: I73.9 Peripheral vascular disease, unspecified (principal); M79.661 Pain in right lower leg; M79.671 Pain in right foot; I10 Essential (primary) hypertension
CPT/HCPCS: J1644

== ENCOUNTER 2018-07-14 17:14 | Emergency (ER) | payer OTHER ==
[~2018-07-14] VITALS: Ht 157.5 cm; Wt 89.0 kg
[2018-07-14] MEDS ORDERED: XARELTO10 MG PO (18:25)
[2018-07-14] MEDS ORDERED: TRAMADOL HYDROC50 MG PO (18:42)
[2018-07-14 18:43] VITALS: BP 159/77
== END 2018-07-14 18:52 | disposition home or self-care (01) ==
LOC: ED 17:14
DX: S80.11XA Contusion of right lower leg, initial encounter (principal); Z89.611 Acquired absence of right leg above knee; W18.30XA Fall on same level, unspecified, initial encounter; Y93.01 Activity, walking, marching and hiking; Y92.009 Unspecified place in unspecified non-institutional (private) residence as the place of occurrence of the external cause; M54.2 Cervicalgia; R51 Headache; M54.5 Low back pain; G89.29 Other chronic pain; Z79.01 Long term (current) use of anticoagulants

== ENCOUNTER 2019-03-25 22:31 | Emergency (ER) | payer OTHER ==
[~2019-03-25] VITALS: Ht 157.5 cm; Wt 81.8 kg
[~2019-03-25 22:31] MED LIST changes: +CYCLOBENZAPR10 MG PO; +GLIPIZIDE ER10 M1 PO; +HUMULIN 70/30 SC; +HYDROCODONE/ACE1 TAB PO; +LANTUS100 UNIT/M; +METHOCARBAMOL500 MG PO; +NORVASC5 M1 PO; +PROAIR HFA108 MCG/AC IN; +XARELTO10 MG PO; +XARELTO20 MG PO
[2019-03-25 23:20] LABS: HEMATOCRIT 42.5 % (37.0-47.0); HEMOGLOBIN 12.8 g/dl (12.0-16.0); IMMATURE GRANULOCYTES 0.1 % (0.0-5.0); MEAN CELL VOLUME 92.4 fL CALC (80.0-100.0); MEAN CORPUSCULAR HGB 27.8 pG CALC (26.0-32.0); MEAN CORPUSCULAR HGB CONC 30.1 g/L CALC (32.0-36.0); NEUT# 4.44 thou/uL (2.00-7.15); RED BLOOD COUNT 4.6 mill/uL (4.20-5.60); RED CELL DISTRI WIDTH 13.4 % (11.5-15.5)
[2019-03-25 23:36] LABS: ALBUMIN 4.2 g/dL (3.2-5.0); ALKALINE PHOSPHATASE 113 u/l (38-126); AMYLASE 54 u/l (30-110); ANION GAP 17 (6-22 (CALC)); BILIRUBIN, TOTAL 0.3 mg/dL (0.0-1.4); BUN 18 mg/dL (8-23); BUN/CREATININE RATIO 22 (12-20 (CALC)); CARBON DIOXIDE 25 mmol/l (22-30); CHLORIDE 100 mmol/l (95-108); CREATININE 0.8 mg/dL (0.5-1.0); GFR > 60 ML/MIN (>=60 (CALC)); GFR FOR AFR.AMER. > 60 ML/MIN (>=60 (CALC)); POTASSIUM 3.8 mmol/l (3.5-5.1); SGOT/AST 33 u/l (9-36); SODIUM 138 mmol/l (137-146); TOTAL PROTEIN 7.5 g/dL (6.3-8.2)
[2019-03-26 00:26] LABS: URINE BILIRUBIN - DIPSTICK NEGATIVE (NEGATIVE); URINE BLOOD DIPSTICK SMALL (NEGATIVE); URINE COLOR YELLOW; URINE GLUCOSE - DIPSTICK >=1000 mg/dL (NEGATIVE); URINE KETONE NEGATIVE (NEGATIVE); URINE NITRITE - DIPSTICK NEGATIVE (Negative); URINE PROTEIN - DIPSTICK NEGATIVE (NEG-TRACE); URINE SPECIFIC GRAVITY 1.015; URINE UROBILINOGEN - DIPSTICK 0.2 E.U./dL (0.2)
[2019-03-26 00:27] LABS: URINE LEUK ESTERASE SMALL (NEGATIVE)
[2019-03-26 00:36] LABS: URINE BACTERIA MANY hpf; URINE SQUAMOUS EPITHELIAL CELL FEW EPI/hpf (0-FEW); URINE WBC 20-50 WBC/hpf (0-5)
[2019-03-26] MEDS ORDERED: MIRALAX3350 N1 PO (00:48)
[2019-03-26] MEDS ORDERED: BACTRIM DS1 TAB PO (00:48)
[2019-03-26 00:50] VITALS: BP 186/81
[2019-03-27] MEDS ORDERED: ATORVASTATIN CA80 MG PO (14:57)
[2019-03-27] MEDS ORDERED: PANTOPRAZOLE SO40 M1 PO (15:06)
[2019-03-27] MEDS ORDERED: XARELTO20 MG PO (15:07)
== END 2019-03-26 00:51 | disposition home or self-care (01) ==
LOC: ED 22:31
PROVIDERS: Family Medicine
DX: N39.0 Urinary tract infection, site not specified (principal); K59.00 Constipation, unspecified

== ENCOUNTER 2019-04-05 06:41 | Day surgery (SDC) | payer OTHER ==
[~2019-04-05 06:41] MED LIST changes: +MIRALAX3350 N1 PO; +PANTOPRAZOLE SO40 M1 PO
[2019-04-05 09:24] VITALS: BP 140/64
== END 2019-04-05 09:35 | disposition home or self-care (01) ==
LOC: ENDO 06:41 → ORM 08:00 → ENDO 09:35
PROVIDERS: ATTEND Surgery
DX: K21.9 Gastro-esophageal reflux disease without esophagitis (principal); K44.9 Diaphragmatic hernia without obstruction or gangrene; K52.9 Noninfective gastroenteritis and colitis, unspecified; E11.9 Type 2 diabetes mellitus without complications; I10 Essential (primary) hypertension; Z79.4 Long term (current) use of insulin

== ENCOUNTER 2019-04-18 20:09 | Emergency (ER) | payer OTHER ==
[~2019-04-18] VITALS: Ht 157.5 cm; Wt 81.0 kg
[2019-04-18 21:33] LABS: HEMATOCRIT 40.2 % (37.0-47.0); HEMOGLOBIN 12.7 g/dl (12.0-16.0); IMMATURE GRANULOCYTES 0.3 % (0.0-5.0); MEAN CELL VOLUME 89.1 fL CALC (80.0-100.0); MEAN CORPUSCULAR HGB 28.2 pG CALC (26.0-32.0); MEAN CORPUSCULAR HGB CONC 31.6 g/L CALC (32.0-36.0); NEUT# 6.38 thou/uL (2.00-7.15); RED BLOOD COUNT 4.51 mill/uL (4.20-5.60); RED CELL DISTRI WIDTH 13.3 % (11.5-15.5); URINE BILIRUBIN - DIPSTICK NEGATIVE (NEGATIVE); URINE BLOOD DIPSTICK SMALL (NEGATIVE); URINE COLOR YELLOW; URINE GLUCOSE - DIPSTICK >=1000 mg/dL (NEGATIVE); URINE KETONE NEGATIVE (NEGATIVE); URINE LEUK ESTERASE TRACE (NEGATIVE); URINE NITRITE - DIPSTICK NEGATIVE (Negative); URINE PH 5.5 (4.5-8.0); URINE PROTEIN - DIPSTICK NEGATIVE (NEG-TRACE); URINE UROBILINOGEN - DIPSTICK 0.2 E.U./dL (0.2)
[2019-04-18 21:43] LABS: URINE SQUAMOUS EPITHELIAL CELL FEW EPI/hpf (0-FEW); URINE WBC 0-2 WBC/hpf (0-5)
[2019-04-18] MEDS ORDERED: LOTRISONE EX (22:10)
[2019-04-18 22:46] VITALS: BP 164/72
== END 2019-04-18 22:56 | disposition home or self-care (01) ==
LOC: ED 20:09
PROVIDERS: Family Medicine
DX: E11.65 Type 2 diabetes mellitus with hyperglycemia (principal); B37.2 Candidiasis of skin and nail; I10 Essential (primary) hypertension; Z79.4 Long term (current) use of insulin

== ENCOUNTER 2019-06-27 | Emergency (ER) | payer OTHER ==
[~2019-06-27] MED LIST changes: +LOTRISONE EX
[2019-06-27 04:40] LABS: HEMOGLOBIN 12.1 g/dl (12.0-16.0); IMMATURE GRANULOCYTES 0.1 % (0.0-5.0); MEAN CELL VOLUME 86.9 fL CALC (80.0-100.0); MEAN CORPUSCULAR HGB 28.4 pG CALC (26.0-32.0); MEAN CORPUSCULAR HGB CONC 32.7 g/L CALC (32.0-36.0); NEUT# 4.48 thou/uL (2.00-7.15); RED BLOOD COUNT 4.26 mill/uL (4.20-5.60); RED CELL DISTRI WIDTH 13.2 % (11.5-15.5)
[2019-06-27 04:56] LABS: URINE BILIRUBIN - DIPSTICK NEGATIVE (NEGATIVE); URINE BLOOD DIPSTICK TRACE-INTACT (NEGATIVE); URINE COLOR YELLOW; URINE GLUCOSE - DIPSTICK NEGATIVE (NEGATIVE); URINE KETONE NEGATIVE (NEGATIVE); URINE NITRITE - DIPSTICK NEGATIVE (Negative); URINE UROBILINOGEN - DIPSTICK 0.2 E.U./dL (0.2)
[2019-06-27 04:58] LABS: ALBUMIN 3.9 g/dL (3.2-5.0); ALKALINE PHOSPHATASE 90 u/l (38-126); ANION GAP 11 (6-22 (CALC)); BILIRUBIN, TOTAL 0.3 mg/dL (0.0-1.4); BUN 15 mg/dL (8-23); BUN/CREATININE RATIO 22 (12-20 (CALC)); CARBON DIOXIDE 27 mmol/l (22-30); CHLORIDE 104 mmol/l (95-108); CREATININE 0.7 mg/dL (0.5-1.0); GFR > 60 ML/MIN (>=60 (CALC)); GFR FOR AFR.AMER. > 60 ML/MIN (>=60 (CALC)); POTASSIUM 3.5 mmol/l (3.5-5.1); SGOT/AST 35 u/l (9-36); SODIUM 139 mmol/l (137-146); TOTAL PROTEIN 7.2 g/dL (6.3-8.2)
[2019-06-27 05:03] LABS: URINE LEUK ESTERASE LARGE (NEGATIVE); URINE PROTEIN - DIPSTICK NEGATIVE (NEG-TRACE)
[2019-06-27 05:04] LABS: URINE EPITHELIAL CELLS MODERATE EPI/hpf (0-FEW); URINE WBC 20-50 WBC/hpf (0-5)
[2019-06-27 05:05] LABS: URINE BACTERIA MODERATE hpf
[2019-06-27 05:10] LABS: MYOGLOBIN 59 ng/mL (0 - 62)
[2019-06-27] MEDS ORDERED: DIFLUCAN150 MG PO (05:13)
[2019-06-27] MEDS ORDERED: CEPHALEXIN500 MG PO (05:13)
[2019-10-08] MEDS ORDERED: FLEXERIL PO (07:31)
[2019-10-08] MEDS ORDERED: HYDROCHLOROT12.5 MG PO (07:32)
[2019-10-08] MEDS ORDERED: FAMOTIDINE20 M1 PO (07:32)
[2019-10-08] MEDS ORDERED: GLIPIZIDE10 MG PO (07:32)
[2019-10-08] MEDS ORDERED: METHOCARBAMOL500 MG PO (07:33)
[2019-10-08] MEDS ORDERED: LISINOPRIL20 MG PO (07:33)
[2019-10-08] MEDS ORDERED: IBUPROFEN600 MG PO (07:33)
[2019-10-08] MEDS ORDERED: XARELTO10 MG PO (07:34)
== END 2019-06-27 06:36 | disposition home or self-care (01) ==
PROVIDERS: Emergency Medicine
DX: E11.65 Type 2 diabetes mellitus with hyperglycemia (principal); I10 Essential (primary) hypertension; T50.916A Underdosing of multiple unspecified drugs, medicaments and biological substances, initial encounter; Z91.128 Patient's intentional underdosing of medication regimen for other reason; Z79.4 Long term (current) use of insulin

== ENCOUNTER 2020-05-29 22:37 | Emergency (ER) | payer OTHER ==
[~2020-05-29] VITALS: Ht 157.5 cm; Wt 82.0 kg
[~2020-05-29 22:37] MED LIST changes: +CEPHALEXIN500 MG PO; +DIFLUCAN150 MG PO; +FAMOTIDINE20 M1 PO; +FLEXERIL PO; +HYDROCHLOROT12.5 MG PO; +IBUPROFEN600 MG PO
[2020-05-29 23:48] LABS: HEMATOCRIT 38.6 % (37.0-47.0); HEMOGLOBIN 12.2 g/dl (12.0-16.0); IMMATURE GRANULOCYTES 0.2 % (0.0-5.0); MEAN CELL VOLUME 89.8 fL CALC (80.0-100.0); MEAN CORPUSCULAR HGB 28.4 pG CALC (26.0-32.0); MEAN CORPUSCULAR HGB CONC 31.6 g/dL CAL (32.0-36.0); NEUT# 6.21 thou/uL (2.00-7.15); RED BLOOD COUNT 4.3 mill/uL (4.20-5.60)
[2020-05-30 00:13] LABS: ALBUMIN 3.7 g/dL (3.2-5.0); ALKALINE PHOSPHATASE 116 u/l (38-126); ANION GAP 13 (6-22 (CALC)); BILIRUBIN, TOTAL 0.3 mg/dL (0.0-1.4); BUN 10 mg/dL (8-23); BUN/CREATININE RATIO 14 (12-20 (CALC)); CARBON DIOXIDE 25 mmol/l (22-30); CHLORIDE 102 mmol/l (95-108); CREATININE 0.7 mg/dL (0.5-1.0); GFR > 60 ML/MIN (>=60 (CALC)); GFR FOR AFR.AMER. > 60 ML/MIN (>=60 (CALC)); POTASSIUM 3.8 mmol/l (3.5-5.1); SGOT/AST 31 u/l (9-36); SODIUM 136 mmol/l (137-146)
[2020-05-30] MEDS ORDERED: NOVOLIN R100 UNIT/M SC (00:19)
[2020-05-30 00:29] VITALS: BP 157/91
== END 2020-05-30 00:29 | disposition home or self-care (01) ==
LOC: ED 22:37
PROVIDERS: Family Medicine
DX: E11.65 Type 2 diabetes mellitus with hyperglycemia (principal); I10 Essential (primary) hypertension; K21.9 Gastro-esophageal reflux disease without esophagitis; Z79.4 Long term (current) use of insulin; Z20.822 Contact with and (suspected) exposure to COVID-19

== ENCOUNTER 2020-07-08 20:06 | Emergency (ER) | payer OTHER ==
[~2020-07-08] VITALS: Ht 157.5 cm; Wt 90.0 kg
[~2020-07-08 20:06] MED LIST changes: +NOVOLIN R100 UNIT/M SC
[2020-07-08] MEDS ORDERED: BACTRIM DS1 TAB PO (20:30)
[2020-07-08 20:40] VITALS: BP 158/83
== END 2020-07-08 20:40 | disposition home or self-care (01) ==
LOC: ED 20:06
DX: L03.211 Cellulitis of face (principal); E11.9 Type 2 diabetes mellitus without complications; I10 Essential (primary) hypertension; K21.9 Gastro-esophageal reflux disease without esophagitis; Z79.4 Long term (current) use of insulin

== ENCOUNTER 2020-10-07 07:13 | Observation (INO) | payer OTHER ==
[~2020-10-07] VITALS: Ht 157.5 cm; Wt 94.0 kg
--- NOTE | 2020-10-07 07:16 | NUR ---
TO ROOM VIA EMS. PATIENT DIAPHORETIC, VOMITING AND C/O OF BEING DIZZY SINCE AWAKENING AT 0630-. 0717- DR UMANA TO BEDSIDE. BP 178/80. AFTER INITIAL ASSESS STROKE ALERT CALLED. 718-PATIENT TRANSPORTED TO CT VIA STRETCHER BY ASHLEIGH HUDSON.
[2020-10-07 07:46] LABS: GFR > 60 ML/MIN (>=60 (CALC)); GFR FOR AFR.AMER. > 60 ML/MIN (>=60 (CALC))
[2020-10-07 07:48] LABS: HEMATOCRIT 41.5 % (37.0-47.0); HEMOGLOBIN 13.3 g/dl (12.0-16.0); IMMATURE GRANULOCYTES 0.3 % (0.0-5.0); MEAN CORPUSCULAR HGB 27.9 pG CALC (26.0-32.0); NEUT# 6.7 thou/uL (2.00-7.15); RED BLOOD COUNT 4.77 mill/uL (4.20-5.60); RED CELL DISTRI WIDTH 13.3 % (11.5-15.5)
[2020-10-07 08:06] LABS: ALBUMIN 4.1 g/dL (3.2-5.0); ALKALINE PHOSPHATASE 123 u/l (38-126); ANION GAP 14 (6-22 (CALC)); BILIRUBIN, TOTAL 0.3 mg/dL (0.0-1.4); BUN 12 mg/dL (8-23); BUN/CREATININE RATIO 17 (12-20 (CALC)); CARBON DIOXIDE 24 mmol/l (22-30); CHLORIDE 102 mmol/l (95-108); CREATININE 0.7 mg/dL (0.5-1.0); GFR > 60 ML/MIN (>=60 (CALC)); GFR FOR AFR.AMER. > 60 ML/MIN (>=60 (CALC)); LIPASE 137 u/l (23-300); POTASSIUM 3.7 mmol/l (3.5-5.1); SGOT/AST 38 u/l (9-36); SODIUM 137 mmol/l (137-146); TOTAL PROTEIN 7.8 g/dL (6.3-8.2)
--- NOTE | 2020-10-07 08:13 | NUR ---
PT STILL NAUSEAS IN ROOM.
--- NOTE | 2020-10-07 09:45 | NUR ---
RECEIVED REPORT FROM ASHLEIGH HUDSON.
--- NOTE | 2020-10-07 10:00 | NUR ---
PATIENT RESTING, EYES CLOSED, VSS. WHEN AWAKENED, PATIENT EYES ROLLING AND STATES SHE IS GOING TO THROW UP AGAIN. EMESIS BAG PROVIDED. PATIENT VOMITED GREENISH YELLOW LIQUID, SMALL AMOUNT X1. DR UMANA MADE AWARE, REGLAN 10 MG IV GIVEN PER EMAR. MRI QUESTIONNAIRE COMPLETED, WARM BLANKET PROVIDED. VSS REMAIN STABLE. EYE ROLLING SUBSIDED THIS NURSE MONITORED AT BEDSIDE.
--- NOTE | 2020-10-07 10:05 | NUR ---
CALL PLACED TO DR FRANKS IN REGARD TO PATIENT FEARING SHE HURT HER HERNIA. DR UMANA AT BEDSIDE FOR EVAL AND STATED TO LET DR FRANKS KNOW. CALL PLACED UPSTAIRS TO DR FRANKS FOR A RETURN CALL.
--- NOTE | 2020-10-07 10:10 | NUR ---
GEOFFREY STATES SHE IS DOING OK, NO VOMITING AT THIS TIME. RESTING WITH EYES CLOSED. CALL LIGHT IN REACH.
--- NOTE | 2020-10-07 10:15 | NUR ---
DIAMOND FINISHING SUPERVISOR AT BEDSIDE, PATIENT PREPARED FOR MRI, BELONGINGS PLACED IN CHAIR AT BEDSIDE TO INCLUDE PROSTHETICS FOR RLE AMPUTATION.
--- NOTE | 2020-10-07 10:28 | NUR ---
MONITORS REMOVED AND PATIENT ASSISTED INTO WHEELCHAIR WITH MINIMAL ASSISTANCE. PATIENT IS AAOX4 AT THIS TIME AND IN NO DISTRESS. PATIENT TO MRI AT THISTIME.
--- NOTE | 2020-10-07 10:45 | NUR ---
AARON CAMPBELLO ASHLEIGH BYERS FOR ROOM 270
--- NOTE | 2020-10-07 11:40 | NUR ---
PATIENT RETURNED FROM MRI, AAOX4, NO DISTRES. PORTABLE MONITOR PLACED ON PATIENT. BELONGINGS BAG AND LIST REVIEWED AND SIGNED AND PATIENT TAKEN TO ROOM 270 VIA WC. PROSTETHETICS REAAPLIED TO PATIENT BY SELF.
--- NOTE | 2020-10-07 11:41 | NUR ---
PT ARRIVED VIA STRETCHER WITH STAFF. IV SITE IS FREE FROM REDNESS OR EDEMA.
[2020-10-07 11:51] VITALS: BP 168/90
--- NOTE | 2020-10-07 12:15 | NUR ---
ASSESSMENT IS COMPLETED: IV SITE IS FREE FROM REDNESS OR EDEMA. HR IS REG,PULSES ARE STRONG X4, ABD IS SOFT WITH ACTIVE BS. BREATH SOUNDS ARE CLEAR BILATERALLY. TELE MONITOR.
--- NOTE | 2020-10-07 12:42 | NUR ---
PT HAD CONTRAST WITH CTA THIS AM AND CT OF THE BRAIN. UABLE TO DO TODAY. INFORMING DR FREY
--- NOTE | 2020-10-07 13:35 | NUR ---
PT IS VOMITING BILE
[2020-10-07 15:21] VITALS: BP 144/75
--- NOTE | 2020-10-07 15:55 | NUR ---
PT C/O NAUSEA STARTED TO VOMIT BILE CONTINUE TO OBSERVE AND MONITOR.
--- NOTE | 2020-10-07 16:30 | NUR ---
PT IS RESTING OFF AND ON. IV SITE IS FREE FROM REDNESS OR EDEMA.
[2020-10-07 18:40] LABS: URINE BILIRUBIN - DIPSTICK NEGATIVE (NEGATIVE); URINE BLOOD DIPSTICK MODERATE (NEGATIVE); URINE COLOR YELLOW; URINE GLUCOSE - DIPSTICK >=1000 mg/dL (NEGATIVE); URINE KETONE 15 mg/dL (NEGATIVE); URINE LEUK ESTERASE NEGATIVE (NEGATIVE); URINE NITRITE - DIPSTICK NEGATIVE (Negative); URINE PH 5.5 (4.5-8.0); URINE PROTEIN - DIPSTICK 30 mg/dL (NEG-TRACE); URINE UROBILINOGEN - DIPSTICK 0.2 E.U./dL (0.2)
[2020-10-07 18:46] LABS: URINE SQUAMOUS EPITHELIAL CELL FEW EPI/hpf (0-FEW); URINE WBC 0-2 WBC/hpf (0-5)
[2020-10-07 19:00] VITALS: BP 151/76
--- NOTE | 2020-10-07 20:13 | NUR ---
PHYSICAL ASSESMENT COMPLETE. PT CURRENTLY DENIES PAIN OR DISCOMFORT. SCHEDULED MEDICATIONS AND PRN MEDICATION ADMINISTERED, SEE E-MAR. PT DENIES ANY NEEDS AT THIS TIME. PLAN OF CARE REVIEWED, PT DENIES QUESTIONS, VERBALIZES UNDERSTANDING. ITEMS WITHIN REACH, BED LOCKED IN LOW POSITION W/ BEDRAILS UP X2. CALL ROGEL WITHIN REACH, AGREES TO CALL PRN.
[2020-10-08] VITALS: BP 160/87
--- NOTE | 2020-10-08 00:13 | NUR ---
PT LAYING IN BED WITH EYES CLOSED, APPEARS TO BE SLEEPING, APPEARS COMFORTABLE AND IN NO DISTRESS. RESPIRATIONS REGULAR AND UNLABORED. ITEMS REMAIN WITHIN REACH, CALL ROGEL REMAINS WITHIN REACH. BED REMAINS LOCKED AND IN LOW POSITION WITH BEDRAILS UP X2. WILL CONTINUE TO MONITOR.
--- NOTE | 2020-10-08 00:30 | NUR ---
PT C/O OF A HEADACHE AND DIZZINESS. PT VOMITTED 400 CC OF CHOCLATE COLORED EMESIS. PT STATED SHE DRANK HER BPROTEIN DRINK BEFORE SHE BECAME NPO AT MIDNIGHT. BEDDING AND FRESH GOWN PROVIDED. PT BATHED. WILL CONTINUE TO MONITOR.
[2020-10-08 04:00] VITALS: BP 159/83
--- NOTE | 2020-10-08 04:02 | NUR ---
PT RESTING IN BED, NO SIGNS OF DISTRESS NOTED, RESP EVEN AND UNLABORED. PT VOICES NO NEEDS OR COMPLAINTS AT THIS TIME. CALL LIGHT IN REACH, CONTINUE TO MONITOR.
[2020-10-08 05:09] LABS: MAGNESIUM 1.8 mg/dL (1.6-2.3)
[2020-10-08 05:10] LABS: CHOLESTEROL HDL RATIO 5.6 (<4.4 (CALC))
--- NOTE | 2020-10-08 07:30 | NUR ---
PT SITTING IN BED. A&O X4. NO DISTRESS NOTED. CLEAR BREATH SOUNDS HEARD UPON AUSCULTATION. ACTIVE BOWEL SOUNDS X4 QUADRANTS. PT C/O OF EPIGASTRIC ABD PAIN, NO NAUSEA AT THIS TIME OR VOMITING EPISODES. LAST VOMITING EPISODE REPORTED TO BE LAST NIGHT. PT CURRENTLY NPO. LAST DOSE OF ORAL CONTRAST GIVEN TO PT. PT INSTRUCTED TO CALL WHEN COMPLETED. PT STATES SHE HAD A "LUMP" REMOVED FROM HER LT BREAST IN [place], PER PT SHE WAS TOLD IT WAS A CYST AND HAD IT PARTIALLY REMOVED THEY TOLD HER ANOTHER ONE WAS DEVELOPING. PT HAD A MAMMOGRAM AND LT BREAST US DONE AT [facility] IN [facility], RECORDS TO BE OBTAINED. #20G RAC HEALTHY AND PATENT WITH IVF INFUSING PER MAR ORDER. INSTRUCTOR PILOT IN PLACE. NO OTHER NEEDS AT THIS TIME. CALL LIGHT AND PERSONAL BELONGINGS WITHIN REACH.
[2020-10-08 07:33] VITALS: BP 145/66
--- NOTE | 2020-10-08 07:58 | NUR ---
RADIOLOGY NOTIFIED OF CONTRAST COMPLETION.
--- NOTE | 2020-10-08 08:38 | NUR ---
PT TAKEN VIA WC ACCOMPANIED BY [facility] IN STABLE CONDITION TO RADIOLOGY.
--- NOTE | 2020-10-08 10:30 | NUR ---
DR FRANKS AT BEDSIDE DISCUSSING POC, PT C/O OF HEADACHE, TYLENOL TO BE GIVED. EDUCATION GIVEN REGARDING PROTONIX. NO OTHER NEEDS AT THIS TIME. CALL LIGHT WITHIN REACH.
[2020-10-08 11:00] VITALS: BP 143/69
--- NOTE | 2020-10-08 11:16 | NUR ---
PT TAKEN DOWN TO US ACCOMPANIED BY [facility] IN STABLE CONDITION
--- NOTE | 2020-10-08 11:39 | NUR ---
PT RETURNED FROM US IN STABLE CONDITION
[2020-10-08 16:00] VITALS: BP 140/71
--- NOTE | 2020-10-08 16:45 | NUR ---
PT ASSISTED TO BED LYMAN, INSULIN GIVEN PER SLIDING SCALE. PT C/O OF BASURTO, TYLENOL GIVEN. NO OTHER NEEDS AT THIS TIME. CALL LIGHT WITHIN REACH.
[2020-10-08 19:04] VITALS: BP 125/67
--- NOTE | 2020-10-08 20:10 | NUR ---
RECIVED REPORT AND ASSUMED CARE AT APPROXIMATLY 1900. PT RESTING IN BED, PT C/O HEADACHE AND IS REQUESTING A PURE WICK CATHETER D/T VERTIGO WHEN CAHNGING POSITION. REACHED OUT TO ONCALL PHYSICIAN TO ADVISE OF PT HEADACHE, NEW ORDER RECIVED FOR MOTRIN 800MG EVERY 6HRS NEEDED. PURE WICK INTIATED, PT VERBALIZED UNDERSTANDING TO INSTRUCTION GIVEN R/T PURE WICK. PT REPORTS DIARRHEA ALL DAY AND SAYS IT IS SLOWING DOWN. COLACE HELD D/T DIARRHEA. SAFETY PRECAUTIONS IN PLACE, BED IN LOWEST POSITION, CALL LIGHT WITHIN REACH. ASSESSMENT COMPLETED, PLEASE SEE DOCUMENTATION. WILL MONITOR
[2020-10-09] VITALS: BP 121/57; BP 139/76
[2020-10-09 04:00] VITALS: BP 138/72
--- NOTE | 2020-10-09 04:20 | NUR ---
PT DOING WELL AT THIS TIME. IN BED WITH HER EYES CLOSED. HAS C/O HEADACHE THROUGHOUT THE NIGHT, RELIEVED WITH TYLENOL/MOTRIN. COMPLAINTS OF NAUSEA, ZOFRAN ADMINSTERED. NO VOMITTING NOTED. BREATHING EVEN AND UNLABORED. NO C/O VERTIGO/DIZZINESS TONIGHT. PURE WICK REMAINS IN PLACE, DISLODGED EARLIER IN SHIFT AND PT WAS INCONTINENT IN THE BED. NEW LINENS PROVIDED, PT WASHED AND IS NOW CLEAN AND DRY. PURE WICK BACK IN PLACE AND PT IS USING IT WITHOUT DIFFICULTY. SAFETY PRECAUTIONS IN PLACE, WILL MONITOR
[2020-10-09 07:15] VITALS: BP 148/69
--- NOTE | 2020-10-09 07:15 | NUR ---
PATIENT RESTING IN BED AT THIS TIME. ALERT AND ORIENTED X 3. ACID WASHER OPERATOR DONE AT THIS TIME. LUNG SUAREZ ARE CLEAR. BOWEL SOUNDS PRESENT IN ALL FOUR QUADS. ACCU CHECK PREFORMED AND BLOOD GLUCOSE READING IS 363 AND 8 UNITS OF SLIDING SCALE INSULIN GIVEN AT THIS TIME. PATIENT RENZO ANY PAIN AND STATES SHE HAS SLIGHT DIZZINESS WHEN SHE MOVES. MEND TEST PREFORMED AND THERE ARE NO POSITIVE FINDINGS AT THIS TIME. R LOWER LEG PROSTESIS IS IN PLACE AT THIS TIME AND PATIENT HAS A PURWICK IN PLACE WITH CLEAR YELLOW URINE NOTED. SIDERAILS ARE UP X 2 CALL LIGHT IS WITHIN REACH.
--- NOTE | 2020-10-09 10:03 | NUR ---
DR. SAUER IN TO SEE PATIENT AT THIS TIME.
[2020-10-09 10:57] VITALS: BP 147/66
--- NOTE | 2020-10-09 10:58 | NUR ---
PATIENT LAYING IN BED AT THIS TIME DENIES ANY DIZZINESS CURRENTLY AT THIS TIME. ACCU CHECK DONE AND READING OF 349 AT THIS TIME. 7 UNITS OF SLIDING SCALE HUMALOG GIVEN. VITAL SIGN TAKEN (SEE INTERVENTIONS). BATTERY CHANGED AT THIS TIME ON TELE MONITOR. PURWICK IN PLACE AND DRAINING YELLOW URINE. PATIENT RENZO ANY PAIN AT THIS TIME.
--- NOTE | 2020-10-09 11:48 | NUR ---
PATIENT SITTING UP IN BED AT THIS TIME EATING LUNCH. PATIENT DENIES ANY NEEDS AND DENIES PAIN AT THIS TIME. SIDERAILS ARE UP X 2 AND CALL LIGHT AND PERSONAL ITEMS ARE WITHIN REACH. TELE MONITOR IN PLACE AND BEING MONITORED BY ED.
--- NOTE | 2020-10-09 15:09 | NUR ---
PHYSICAL THERAPY IN TO WORK WITH PATIENT AT THIS TIME.
--- NOTE | 2020-10-09 15:37 | NUR ---
PATIENT UP TO BEDSIDE COMMODE AT THIS TIME. PATIENT HAD SCANT BOWEL MOVEMENT X1. PATIENT ASSISTED BACK TO BED AT THIS TIME. MOUTHCARE GIVEN BED LINEN CHANGED AND PATIENT ASKED FOR TWO TYLENOL FOR HEADACHE AT THIS TIME. 650 MG OF TYLENOL P.O. GIVEN AT THIS TIME PATIENT STATED HER HEADACHE PAIN IS A 4 OUT OF A SCALE OF 0-10. PATIENT DOES DENY ANY DIZZINESS AT THIS TIME. PATIENT REQUESTED NOT TO USE PURWICK AT THIS TIME AND IT WAS REMOVED.
[2020-10-09 16:00] VITALS: BP 141/62
--- NOTE | 2020-10-09 17:36 | NUR ---
PATIENT ACCU CHECK AT THIS TIME IS 439 10 UNITS OF HUMALOG SLIDING SCALE INSULIN ADMINISTER AND DR. FREY NOTIFED AND NO NEW ORDERS GIVEN.
[2020-10-09 19:00] VITALS: BP 136/73
--- NOTE | 2020-10-09 20:56 | NUR ---
PURE WICK CATHETER WAS D/C'D ON DAY SHIFT. PT IS UTILIZING BSC, NO COMPLAINTS OF DIZZINESS REPORTED AT THIS TIME. PT C/O HEADACHE AND WAS MEDICATED WITH MOTRIN 800MG. ASSESSMENTS COMPLETED, SEE DOCUMENTATION. BREATHING IS EVEN AND UNLABORED. SAFETY PRECAUTIONS IN PLACE, BED IN LOWEST POSITION, CALL ROGEL WITH IN REACH. WILL MONITOR
--- NOTE | 2020-10-10 00:20 | NUR ---
PT RESTING QUIETLY IN BED WITH HER EYES CLOSED. PT IS ABLE TO INDEPENDENTLY TRANSFER HERSELF FROM BED TO BSC. PT IS ABLE TO APPLY HER PROSTHESIS INDEPENDENLTY. NO COMPLAINTS VOICED, NO S/S OF DISTRESS. WILL MONITOR
[2020-10-10 04:00] VITALS: BP 155/75
[2020-10-10 07:08] VITALS: BP 147/70
--- NOTE | 2020-10-10 07:52 | NUR ---
SHIFT CHANGE REPORT, PT AWAKE ALERT AND ORIENTED X 3, NO C/O DISCOMFORT, IVF INFUSING @ [facility], TELE MONITOR IN PLACE, NURSE ASSISTED TO BSC AND BACK TO BED WITH SUPERVISION AND STAND-BY ASSIST ONLY, CALL ROGEL IN REACH AND BED LOCKED IN LOWEST POSITION.
[2020-10-10] MEDS ORDERED: MECLIZINE25 MG PO (09:25)
[2020-10-10] MEDS ORDERED: DECADRON2 MG PO (09:25)
[2020-10-10] MEDS ORDERED: ZOFRAN4 MG/TAB PO (09:27)
[2020-10-10 10:41] VITALS: BP 147/82
--- NOTE | 2020-10-10 12:01 | NUR ---
SITTING UP IN BED HAVING MEAL, C/O HEADACHE, ISSUE ADDRESSED, PT STAES SHE DOES HAVE HEADACHES FROM TIME TO TIME, WILL CONTINUE TO MONITOR.
--- NOTE | 2020-10-10 13:37 | NUR ---
Discharge instructions given. Patient verbalizes understanding of same. Discharged in fair condition via Wheelchair to Home with family. All belongings sent with pt.
== END 2020-10-10 13:37 | disposition home or self-care (01) ==
LOC: ED 07:13 → ED-I 08:56 → ED 09:11 → MS2 09:12
PROVIDERS: Family Medicine; ADMIT Internal Medicine; ATTEND Internal Medicine
DX: R42 Dizziness and giddiness (principal); G93.89 Other specified disorders of brain; E11.65 Type 2 diabetes mellitus with hyperglycemia; I10 Essential (primary) hypertension; K21.9 Gastro-esophageal reflux disease without esophagitis; Q28.1 Other malformations of precerebral vessels; F41.9 Anxiety disorder, unspecified; T38.0X5A Adverse effect of glucocorticoids and synthetic analogues, initial encounter; E78.5 Hyperlipidemia, unspecified; Z86.73 Personal history of transient ischemic attack (TIA), and cerebral infarction without residual deficits; Z79.4 Long term (current) use of insulin; Z87.891 Personal history of nicotine dependence; Z89.511 Acquired absence of right leg below knee; Z20.822 Contact with and (suspected) exposure to COVID-19
CPT/HCPCS: G0378; Q9967

== ENCOUNTER 2020-10-26 17:38 | Emergency (ER) | payer OTHER ==
[~2020-10-26] VITALS: Ht 157.5 cm; Wt 90.0 kg
[~2020-10-26 17:38] MED LIST changes: +DECADRON2 MG PO; +MECLIZINE25 MG PO
[2020-10-26] MEDS ORDERED: KEFLEX500 MG PO ×2 (18:53→22:17)
[2020-10-26] MEDS ORDERED: BACTRIM DS1 TAB PO ×2 (18:53→22:17)
[2020-10-26 19:22] VITALS: BP 138/71
== END 2020-10-26 19:22 | disposition home or self-care (01) ==
LOC: ED 17:38
DX: L02.811 Cutaneous abscess of head [any part, except face] (principal); E11.9 Type 2 diabetes mellitus without complications; I10 Essential (primary) hypertension; F41.9 Anxiety disorder, unspecified; F32.9 Major depressive disorder, single episode, unspecified; K21.9 Gastro-esophageal reflux disease without esophagitis; B95.62 Methicillin resistant Staphylococcus aureus infection as the cause of diseases classified elsewhere; Z89.511 Acquired absence of right leg below knee; Z79.4 Long term (current) use of insulin

== ENCOUNTER 2021-03-30 12:30 | Emergency (ER) | payer MEDICARE, MEDICAID ==
[~2021-03-30] VITALS: Ht 157.5 cm; Wt 85.0 kg
[~2021-03-30 12:30] MED LIST changes: +KEFLEX500 MG PO
[2021-03-30] MEDS ORDERED: OMNI-PAC300 MG PO (13:15)
[2021-03-30] MEDS ORDERED: BACTRIM DS1 TAB PO (13:15)
[2021-03-30] MEDS ORDERED: HYDROCO/APAP1 TA9 PO (13:31)
[2021-03-30 13:40] VITALS: BP 178/84
== END 2021-03-30 13:45 | disposition home or self-care (01) ==
LOC: ED 12:30
DX: L60.0 Ingrowing nail (principal); I10 Essential (primary) hypertension; E11.9 Type 2 diabetes mellitus without complications; F41.9 Anxiety disorder, unspecified; F32.A Depression, unspecified; K21.9 Gastro-esophageal reflux disease without esophagitis; Z79.4 Long term (current) use of insulin; Z89.511 Acquired absence of right leg below knee

== ENCOUNTER 2021-03-31 20:46 | Emergency (ER) | payer MEDICARE, MEDICAID ==
[~2021-03-31] VITALS: Ht 157.5 cm; Wt 83.0 kg
[~2021-03-31 20:46] MED LIST changes: +HYDROCO/APAP1 TA9 PO; +OMNI-PAC300 MG PO
[2021-03-31 21:55] LABS: HEMATOCRIT 41.1 % (37.0-47.0); HEMOGLOBIN 12.9 g/dl (12.0-16.0); IMMATURE GRANULOCYTES 0.2 % (0.0-5.0); MEAN CELL VOLUME 91.3 fL CALC (80.0-100.0); MEAN CORPUSCULAR HGB 28.7 pG CALC (26.0-32.0); MEAN CORPUSCULAR HGB CONC 31.4 g/dL CAL (32.0-36.0); NEUT# 5.54 thou/uL (2.00-7.15); RED BLOOD COUNT 4.5 mill/uL (4.20-5.60); RED CELL DISTRI WIDTH 13.5 % (11.5-15.5); URINE BILIRUBIN - DIPSTICK NEGATIVE (NEGATIVE); URINE BLOOD DIPSTICK TRACE-INTACT (NEGATIVE); URINE COLOR YELLOW; URINE GLUCOSE - DIPSTICK >=1000 mg/dL (NEGATIVE); URINE KETONE NEGATIVE (NEGATIVE); URINE LEUK ESTERASE NEGATIVE (NEGATIVE); URINE PROTEIN - DIPSTICK NEGATIVE (NEG-TRACE); URINE UROBILINOGEN - DIPSTICK 0.2 E.U./dL (0.2)
[2021-03-31 21:56] LABS: URINE NITRITE - DIPSTICK NEGATIVE (Negative)
[2021-03-31 22:08] LABS: ALBUMIN 3.8 g/dL (3.2-5.0); ALKALINE PHOSPHATASE 123 u/l (38-126); ANION GAP 15 (6-22 (CALC)); BUN 15 mg/dL (8-23); BUN/CREATININE RATIO 20 (12-20 (CALC)); CARBON DIOXIDE 23 mmol/l (22-30); CHLORIDE 104 mmol/l (95-108); CREATININE 0.7 mg/dL (0.5-1.0); GFR > 60 ML/MIN (>=60 (CALC)); GFR FOR AFR.AMER. > 60 ML/MIN (>=60 (CALC)); LIPASE 918 u/l (23-300); POTASSIUM 3.9 mmol/l (3.5-5.1); SGOT/AST 24 u/l (9-36); SODIUM 138 mmol/l (137-146); TOTAL PROTEIN 7.3 g/dL (6.3-8.2)
[2021-03-31 22:09] LABS: ACT PARTIAL THROMBO TIME 22.2 SECONDS (20.0-32.5); INTERNATIONAL NORMALIZED RATIO 0.9 RATIO (0.7-1.3); PROTHROMBIN TIME 9.9 SECONDS (9.0-12.5)
[2021-03-31 22:12] LABS: BILIRUBIN, TOTAL 0.5 mg/dL (0.0-1.4)
[2021-04-01 00:48] VITALS: BP 162/88
== END 2021-04-01 00:56 | disposition home or self-care (01) ==
LOC: ED 20:46
DX: E11.65 Type 2 diabetes mellitus with hyperglycemia (principal); I10 Essential (primary) hypertension; F41.9 Anxiety disorder, unspecified; K21.9 Gastro-esophageal reflux disease without esophagitis; F32.A Depression, unspecified; Z89.511 Acquired absence of right leg below knee; Z79.4 Long term (current) use of insulin

== ENCOUNTER 2021-07-05 11:53 | Emergency (ER) | payer MEDICARE, MEDICAID ==
[~2021-07-05] VITALS: Ht 157.5 cm; Wt 83.4 kg
[2021-07-05 12:40] VITALS: BP 133/67
== END 2021-07-05 12:20 | disposition left against medical advice (07) ==
LOC: ED 11:53
DX: F41.9 Anxiety disorder, unspecified (principal); I10 Essential (primary) hypertension; E11.9 Type 2 diabetes mellitus without complications; F32.A Depression, unspecified; K21.9 Gastro-esophageal reflux disease without esophagitis; Z91.19 Patient's noncompliance with other medical treatment and regimen; Z79.4 Long term (current) use of insulin; Z89.511 Acquired absence of right leg below knee

== ENCOUNTER 2021-09-12 13:48 | Emergency (ER) | payer MEDICARE, MEDICAID ==
[2021-09-12] VITALS (18 sets, daily range): BP systolic 94–131; BP diastolic 41–68
[~2021-09-12] VITALS: Ht 157.5 cm; Wt 81.8 kg
[2021-09-12 14:14] LABS: HEMATOCRIT 38.7 % (37.0-47.0); HEMOGLOBIN 12.4 g/dl (12.0-16.0); IMMATURE GRANULOCYTES 0.1 % (0.0-5.0); MEAN CELL VOLUME 89.2 fL CALC (80.0-100.0); MEAN CORPUSCULAR HGB 28.6 pG CALC (26.0-32.0); NEUT# 4.04 thou/uL (2.00-7.15); RED BLOOD COUNT 4.34 mill/uL (4.20-5.60); RED CELL DISTRI WIDTH 13.9 % (11.5-15.5)
[2021-09-12 14:32] LABS: ALBUMIN 4.2 g/dL (3.2-5.0); ALKALINE PHOSPHATASE 107 u/l (38-126); ANION GAP 18 (6-22 (CALC)); BILIRUBIN, TOTAL 0.4 mg/dL (0.0-1.4); BUN 18 mg/dL (8-23); BUN/CREATININE RATIO 25 (12-20 (CALC)); CARBON DIOXIDE 22 mmol/l (22-30); CHLORIDE 103 mmol/l (95-108); CREATININE 0.7 mg/dL (0.5-1.0); ETHYL ALCOHOL 0 mg/dl (0-30); GFR > 60 ML/MIN (>=60 (CALC)); GFR FOR AFR.AMER. > 60 ML/MIN (>=60 (CALC)); LIPASE 171 u/l (23-300); POTASSIUM 4.6 mmol/l (3.5-5.1); SGOT/AST 31 u/l (9-36); SODIUM 137 mmol/l (137-146); TOTAL PROTEIN 7.9 g/dL (6.3-8.2)
[2021-09-12 14:35] LABS: ACT PARTIAL THROMBO TIME 23.4 SECONDS (20.0-32.5); INTERNATIONAL NORMALIZED RATIO 0.9 RATIO (0.7-1.3); PROTHROMBIN TIME 9.7 SECONDS (9.0-12.5)
[2021-09-12 15:42] LABS: URINE BILIRUBIN - DIPSTICK NEGATIVE (NEGATIVE); URINE BLOOD DIPSTICK NEGATIVE (NEGATIVE); URINE COLOR YELLOW; URINE GLUCOSE - DIPSTICK >=1000 mg/dL (NEGATIVE); URINE KETONE NEGATIVE (NEGATIVE); URINE LEUK ESTERASE NEGATIVE (NEGATIVE); URINE PROTEIN - DIPSTICK NEGATIVE (NEG-TRACE); URINE SPECIFIC GRAVITY <=1.005; URINE UROBILINOGEN - DIPSTICK 0.2 E.U./dL (0.2)
[2021-09-12 15:45] LABS: URINE NITRITE - DIPSTICK NEGATIVE (Negative)
== END 2021-09-12 17:59 | disposition left against medical advice (07) ==
LOC: ED 13:48
DX: R07.9 Chest pain, unspecified (principal); I10 Essential (primary) hypertension; E11.9 Type 2 diabetes mellitus without complications; I25.10 Atherosclerotic heart disease of native coronary artery without angina pectoris; K21.9 Gastro-esophageal reflux disease without esophagitis; F41.9 Anxiety disorder, unspecified; F32.A Depression, unspecified; Z95.5 Presence of coronary angioplasty implant and graft; Z79.4 Long term (current) use of insulin; Z89.611 Acquired absence of right leg above knee; Z20.822 Contact with and (suspected) exposure to COVID-19

== ENCOUNTER 2021-10-14 12:28 | Emergency (ER) | payer MEDICARE, MEDICAID ==
[~2021-10-14] VITALS: Ht 157.5 cm; Wt 81.8 kg
[2021-10-14] MEDS ORDERED: HYDROCO/APAP1 TA9 PO (14:24)
[2021-10-14] MEDS ORDERED: NAPROXEN500 MG PO (14:24)
[2021-10-14 14:34] VITALS: BP 138/69
== END 2021-10-14 14:35 | disposition home or self-care (01) ==
LOC: ED 12:28
DX: M25.561 Pain in right knee (principal); Z89.511 Acquired absence of right leg below knee

== ENCOUNTER 2022-04-18 06:16 | Emergency (ER) | payer MEDICARE, MEDICAID ==
[2022-04-18] VITALS (10 sets, daily range): BP systolic 120–149; BP diastolic 62–79
[~2022-04-18] VITALS: Ht 157.5 cm; Wt 104.5 kg
[~2022-04-18 06:16] MED LIST changes: +NAPROXEN500 MG PO
[2022-04-18 07:02] LABS: HEMATOCRIT 41.4 % (37.0-47.0); HEMOGLOBIN 13.4 g/dl (12.0-16.0); IMMATURE GRANULOCYTES 0.1 % (0.0-5.0); MEAN CORPUSCULAR HGB 29.5 pG CALC (26.0-32.0); MEAN CORPUSCULAR HGB CONC 32.4 g/dL CAL (32.0-36.0); NEUT# 6.41 thou/uL (2.00-7.15); RED BLOOD COUNT 4.55 mill/uL (4.20-5.60); RED CELL DISTRI WIDTH 13.5 % (11.5-15.5)
[2022-04-18 07:10] LABS: ALBUMIN 4.2 g/dL (3.2-5.0); ALKALINE PHOSPHATASE 107 u/l (38-126); ANION GAP 12 (6-22 (CALC)); BILIRUBIN, TOTAL 0.4 mg/dL (0.0-1.4); BUN 14 mg/dL (8-23); BUN/CREATININE RATIO 18 (12-20 (CALC)); CARBON DIOXIDE 25 mmol/l (22-30); CHLORIDE 107 mmol/l (95-108); CREATININE 0.8 mg/dL (0.5-1.0); GFR FOR AFR.AMER. > 60 ML/MIN (>=60 (CALC)); GFR OTHER RACES > 60 ML/MIN (>=60 (CALC)); POTASSIUM 3.7 mmol/l (3.5-5.1); SGOT/AST 36 u/l (9-36); SODIUM 140 mmol/l (137-146); TOTAL PROTEIN 7.7 g/dL (6.3-8.2)
[2022-04-18 07:23] LABS: MYOGLOBIN 67 ng/mL (0 - 62)
[2022-04-18 08:02] LABS: URINE BILIRUBIN - DIPSTICK NEGATIVE (NEGATIVE); URINE BLOOD DIPSTICK MODERATE (NEGATIVE); URINE COLOR YELLOW; URINE GLUCOSE - DIPSTICK NEGATIVE (NEGATIVE); URINE KETONE NEGATIVE (NEGATIVE); URINE LEUK ESTERASE NEGATIVE (NEGATIVE); URINE PROTEIN - DIPSTICK NEGATIVE (NEG-TRACE); URINE SPECIFIC GRAVITY 1.025; URINE UROBILINOGEN - DIPSTICK 0.2 E.U./dL (0.2)
[2022-04-18 08:06] LABS: URINE NITRITE - DIPSTICK NEGATIVE (Negative)
[2022-04-18 08:16] LABS: URINE SQUAMOUS EPITHELIAL CELL FEW EPI/hpf (0-FEW); URINE WBC 0-2 WBC/hpf (0-5)
[2022-04-18] MEDS ORDERED: HYDROCO/APAP1 TA9 PO (09:34)
== END 2022-04-18 11:04 | disposition home or self-care (01) ==
LOC: ED 06:16
PROVIDERS: Family Medicine
DX: R42 Dizziness and giddiness (principal); I10 Essential (primary) hypertension; E11.9 Type 2 diabetes mellitus without complications; F41.9 Anxiety disorder, unspecified; F32.A Depression, unspecified; K21.9 Gastro-esophageal reflux disease without esophagitis; Z89.511 Acquired absence of right leg below knee; F17.200 Nicotine dependence, unspecified, uncomplicated

== ENCOUNTER 2022-10-05 17:02 | Emergency (ER) | payer MEDICARE, MEDICAID ==
[~2022-10-05] VITALS: Ht 157.5 cm; Wt 86.0 kg
[~2022-10-05 17:02] MED LIST changes: +ATORVASTATIN CA10 MG PO; +VENTOLIN HFA108 MCG IN
[2022-10-05 17:14] VITALS: BP 155/78
[2022-10-05 17:37] LABS: BASO% 0.4 % (0-3); EOS% 1.4 % (0-8); HEMATOCRIT 47.3 % (37.0-47.0); HEMOGLOBIN 14.7 g/dl (12.0-16.0); IMMATURE GRANULOCYTES 0.1 % (0.0-5.0); LYMPH% 26.2 % (15-41); MEAN CELL VOLUME 91.3 fL CALC (80.0-100.0); MEAN CORPUSCULAR HGB 28.4 pG CALC (26.0-32.0); MEAN CORPUSCULAR HGB CONC 31.1 g/dL CAL (32.0-36.0); MONO% 6.6 % (2-13); NEUT# 5.53 thou/uL (2.00-7.15); NEUT% 65.3 % (42-76); RED BLOOD COUNT 5.18 mill/uL (4.20-5.60); RED CELL DISTRI WIDTH 13.1 % (11.5-15.5)
[2022-10-05 18:01] LABS: ALBUMIN 4.4 g/dL (3.2-5.0); ALKALINE PHOSPHATASE 118 u/l (38-126); ANION GAP 15 (6-22 (CALC)); BILIRUBIN, TOTAL 0.3 mg/dL (0.02-1.3); BUN 15 mg/dL (8-23); BUN/CREATININE RATIO 19 (12-20 (CALC)); CARBON DIOXIDE 24 mmol/l (22-30); CHLORIDE 105 mmol/l (95-108); CREATININE 0.8 mg/dL (0.5-1.0); GFR FOR AFR.AMER. > 60 ML/MIN (>=60 (CALC)); GFR OTHER RACES > 60 ML/MIN (>=60 (CALC)); SGOT/AST 37 u/l (9-36); SODIUM 140 mmol/l (137-146)
[2022-10-05 18:56] VITALS: BP 155/78
== END 2022-10-05 18:57 | disposition home or self-care (01) ==
LOC: ED 17:02
PROVIDERS: Nurse Practitioner
DX: H11.32 Conjunctival hemorrhage, left eye (principal); I10 Essential (primary) hypertension; E11.9 Type 2 diabetes mellitus without complications; I25.10 Atherosclerotic heart disease of native coronary artery without angina pectoris; F41.9 Anxiety disorder, unspecified; F32.A Depression, unspecified; K21.9 Gastro-esophageal reflux disease without esophagitis; Z89.511 Acquired absence of right leg below knee; Z79.4 Long term (current) use of insulin

== ENCOUNTER 2023-05-13 13:06 | Emergency (ER) | payer MEDICARE, MEDICAID ==
[~2023-05-13] VITALS: Ht 157.5 cm; Wt 86.4 kg
[2023-05-13] VITALS (9 sets, daily range): BP systolic 109–146; BP diastolic 51–83
[2023-05-13] MEDS ORDERED: ULTRAM50 MG PO ×2 (17:29→17:39)
[2023-05-13] MEDS ORDERED: METHOCARBAMOL500 MG PO ×2 (17:29→17:39)
== END 2023-05-13 18:05 | disposition home or self-care (01) ==
LOC: ED 13:06
DX: M25.562 Pain in left knee (principal); I10 Essential (primary) hypertension; E11.9 Type 2 diabetes mellitus without complications; F41.9 Anxiety disorder, unspecified; F32.A Depression, unspecified; W17.89XA Other fall from one level to another, initial encounter; Z89.511 Acquired absence of right leg below knee; Z79.4 Long term (current) use of insulin

== ENCOUNTER 2023-11-09 20:53 | Emergency (ER) | payer MEDICARE, MEDICAID ==
[~2023-11-09] VITALS: Ht 157.5 cm; Wt 85.0 kg
[~2023-11-09 20:53] MED LIST changes: +LORTAB 5/3255 MG PO; +PROMETHAZINE HY25 M1 PO; +TRAMADOL HYDROC50 M1 PO
[2023-11-09] MEDS ORDERED: ASPIRIN 81 MG/TAB PO ONE (21:00)
[2023-11-09] MEDS ORDERED: methylPREDNISolone SODIUM SUCC 125 MG/2 ML SDV IV ONE (21:00)
[2023-11-09] MEDS ORDERED: IPRATROPIUM-Albuterol 0.5MG-2.5MG/3 ML NEB ONE (21:05)
[2023-11-09 21:20] LABS: BASO% 0.5 % (0-3); EOS% 9.2 % (0-8); HEMATOCRIT 44.4 % (37.0-47.0); HEMOGLOBIN 13.9 g/dl (12.0-16.0); IMMATURE GRANULOCYTES 0.1 % (0.0-5.0); LYMPH% 18.7 % (15-41); MEAN CELL VOLUME 91.9 fL CALC (80.0-100.0); MEAN CORPUSCULAR HGB 28.8 pG CALC (26.0-32.0); MEAN CORPUSCULAR HGB CONC 31.3 g/dL CAL (32.0-36.0); MONO% 5.7 % (2-13); NEUT# 5.17 thou/uL (2.00-7.15); NEUT% 65.8 % (42-76); RED BLOOD COUNT 4.83 mill/uL (4.20-5.60); RED CELL DISTRI WIDTH 13.7 % (11.5-15.5)
[2023-11-09 21:33] LABS: CPK 338 u/l (30-135); LIPASE 126 u/l (23-300); MAGNESIUM 1.9 mg/dL (1.6-2.3)
[2023-11-09 22:43] VITALS: BP 115/50
[2023-11-09 22:45] VITALS: BP 116/45
[2023-11-09 23:05] LABS: ALBUMIN 4.1 g/dL (3.2-5.0); ALKALINE PHOSPHATASE 132 u/l (38-126); ANION GAP 10 (6-22 (CALC)); BUN 17 mg/dL (8-23); BUN/CREATININE RATIO 18 (12-20 (CALC)); CARBON DIOXIDE 25 mmol/l (22-30); CHLORIDE 108 mmol/l (95-108); CREATININE 0.9 mg/dL (0.5-1.0); ESTIMATED GFR 70 ML/MIN (>=90 (CALC)); SGOT/AST 34 u/l (9-36); SODIUM 140 mmol/l (137-146); TOTAL PROTEIN 7.9 g/dL (6.3-8.2)
[2023-11-09 23:06] LABS: BILIRUBIN, TOTAL 0.6 mg/dL (0.02-1.3)
[2023-11-10] MEDS ORDERED: VENTOLIN HFA108 MCG IN (03:57)
[2023-11-10] MEDS ORDERED: PREDNISONE20 MG PO (03:57)
[2023-11-10 04:00] VITALS: BP 135/78
[2023-11-10] MEDS ORDERED: ACETAMINOPHEN 500 MG TAB PO ONE (04:05)
== END 2023-11-10 04:45 | disposition home or self-care (01) ==
LOC: ED 20:53
PROVIDERS: Internal Medicine
DX: R05.9 Cough, unspecified (principal); R07.9 Chest pain, unspecified; E11.65 Type 2 diabetes mellitus with hyperglycemia; R79.89 Other specified abnormal findings of blood chemistry; I10 Essential (primary) hypertension; F32.A Depression, unspecified; F41.9 Anxiety disorder, unspecified; E78.00 Pure hypercholesterolemia, unspecified; K21.9 Gastro-esophageal reflux disease without esophagitis; Z89.511 Acquired absence of right leg below knee; Z79.4 Long term (current) use of insulin; Z20.822 Contact with and (suspected) exposure to COVID-19
CPT/HCPCS: Q9967

== ENCOUNTER 2023-11-20 13:30 | Emergency (ER) | payer MEDICARE, MEDICAID ==
[2023-11-20] VITALS (13 sets, daily range): BP systolic 71–141; BP diastolic 40–117
[~2023-11-20] VITALS: Ht 157.5 cm; Wt 81.6 kg
[~2023-11-20 13:30] MED LIST changes: +PREDNISONE20 MG PO
[2023-11-20] MEDS ORDERED: Pantoprazole Sodium 40 MG VIAL (Protonix) IV ONE (13:40)
[2023-11-20 14:10] LABS: BASO% 0.4 % (0-3); EOS% 0.7 % (0-8); HEMATOCRIT 42.2 % (37.0-47.0); HEMOGLOBIN 13.7 g/dl (12.0-16.0); IMMATURE GRANULOCYTES 0.1 % (0.0-5.0); LYMPH% 11.2 % (15-41); MEAN CELL VOLUME 90.2 fL CALC (80.0-100.0); MEAN CORPUSCULAR HGB 29.3 pG CALC (26.0-32.0); MEAN CORPUSCULAR HGB CONC 32.5 g/dL CAL (32.0-36.0); MONO% 3.6 % (2-13); NEUT# 7.69 thou/uL (2.00-7.15); RED BLOOD COUNT 4.68 mill/uL (4.20-5.60); RED CELL DISTRI WIDTH 13.8 % (11.5-15.5)
[2023-11-20 14:23] LABS: BILIRUBIN, TOTAL 0.6 mg/dL (0.02-1.3); CREATININE 0.8 mg/dL (0.5-1.0); POTASSIUM 4.1 mmol/l (3.5-5.1); TOTAL PROTEIN 7.2 g/dL (6.3-8.2)
[2023-11-20 14:33] LABS: PROTHROMBIN TIME 9.8 SECONDS (9.0-12.5)
[2023-11-20] MEDS ORDERED: METOCLOPRAMIDE HCL 10 MG/2 ML SDV IV ONE (15:00)
[2023-11-20] MEDS ORDERED: traMADol HCL 50 MG/TAB PO ONE (16:35)
[2023-11-20] MEDS ORDERED: PROTONIX40 MG PO (16:39)
[2023-11-20] MEDS ORDERED: ZOFRAN4 MG/TAB PO (16:39)
== END 2023-11-20 17:40 | disposition home or self-care (01) ==
LOC: ED 13:30
PROVIDERS: Nurse Practitioner Family
DX: K29.70 Gastritis, unspecified, without bleeding (principal); I10 Essential (primary) hypertension; E11.9 Type 2 diabetes mellitus without complications; F41.9 Anxiety disorder, unspecified; F32.A Depression, unspecified; K21.9 Gastro-esophageal reflux disease without esophagitis; E78.00 Pure hypercholesterolemia, unspecified; N64.4 Mastodynia; N63.0 Unspecified lump in unspecified breast; Z79.4 Long term (current) use of insulin; Z89.511 Acquired absence of right leg below knee; Z87.11 Personal history of peptic ulcer disease
CPT/HCPCS: J2470

== ENCOUNTER 2023-12-16 13:06 | Emergency (ER) | payer MEDICARE, MEDICAID ==
[~2023-12-16] VITALS: Ht 157.5 cm; Wt 86.1 kg
[2023-12-16] VITALS (8 sets, daily range): BP systolic 100–127; BP diastolic 51–72
[2023-12-16] MEDS ORDERED: SODIUM CHLORIDE 0.9% 1,000 ML IV ONE (13:20)
[2023-12-16] MEDS ORDERED: FAMOTIDINE 10MG/ML 2ML SDV IV ONE (13:20)
[2023-12-16 13:40] LABS: URINE BILIRUBIN - DIPSTICK Negative (NEGATIVE); URINE BLOOD DIPSTICK Trace-intact (NEGATIVE); URINE GLUCOSE - DIPSTICK >=1000 mg/dL (NEGATIVE); URINE KETONE Negative (NEGATIVE); URINE LEUK ESTERASE Negative (NEGATIVE); URINE NITRITE - DIPSTICK Negative (Negative); URINE PH 5.5 (4.5-8.0); URINE PROTEIN - DIPSTICK Negative (NEG-TRACE); URINE SPECIFIC GRAVITY <=1.005; URINE UROBILINOGEN - DIPSTICK 0.2 E.U./dL (0.2)
[2023-12-16 13:41] LABS: URINE COLOR Yellow
[2023-12-16 13:44] LABS: BASO% 0.4 % (0-3); HEMATOCRIT 44.5 % (37.0-47.0); HEMOGLOBIN 13.8 g/dl (12.0-16.0); IMMATURE GRANULOCYTES 0.1 % (0.0-5.0); LYMPH% 15.1 % (15-41); MEAN CELL VOLUME 92.3 fL CALC (80.0-100.0); MEAN CORPUSCULAR HGB 28.6 pG CALC (26.0-32.0); MONO% 4.9 % (2-13); NEUT# 6.71 thou/uL (2.00-7.15); NEUT% 73.5 % (42-76); RED BLOOD COUNT 4.82 mill/uL (4.20-5.60); RED CELL DISTRI WIDTH 14.2 % (11.5-15.5)
[2023-12-16 13:53] LABS: ALBUMIN 4.4 g/dL (3.2-5.0); BILIRUBIN, TOTAL 0.6 mg/dL (0.02-1.3); CREATININE 0.9 mg/dL (0.5-1.0); POTASSIUM 4.1 mmol/l (3.5-5.1); TOTAL PROTEIN 7.9 g/dL (6.3-8.2)
[2023-12-16] MEDS ORDERED: INSULIN REGULAR (HUMAN) 100 UNIT/ML INJ IV ONE (14:50)
[2023-12-16] MEDS ORDERED: ZOFRAN4 MG/TAB PO (16:09)
== END 2023-12-16 17:29 | disposition home or self-care (01) ==
LOC: ED 13:06
PROVIDERS: Nurse Practitioner
DX: K29.70 Gastritis, unspecified, without bleeding (principal); E11.65 Type 2 diabetes mellitus with hyperglycemia; I10 Essential (primary) hypertension; F41.9 Anxiety disorder, unspecified; F32.A Depression, unspecified; Z79.4 Long term (current) use of insulin; Z20.822 Contact with and (suspected) exposure to COVID-19

== ENCOUNTER 2024-01-14 06:48 | Emergency (ER) | payer MEDICARE, MEDICAID ==
[~2024-01-14] VITALS: Ht 157.5 cm; Wt 81.6 kg
[2024-01-14] VITALS (8 sets, daily range): BP systolic 108–138; BP diastolic 49–76
[2024-01-14] MEDS ORDERED: predniSONE 20 MG/TAB PO ONE (07:35)
[2024-01-14] MEDS ORDERED: IPRATROPIUM-Albuterol 0.5MG-2.5MG/3 ML NEB ONE ×2 (07:35)
[2024-01-14] MEDS ORDERED: ASPIRIN 81 MG/TAB PO ONE (07:35)
[2024-01-14 08:09] LABS: BASO% 0.4 % (0-3); HEMATOCRIT 42.9 % (37.0-47.0); HEMOGLOBIN 13.6 g/dl (12.0-16.0); IMMATURE GRANULOCYTES 0.1 % (0.0-5.0); LYMPH% 12.7 % (15-41); MEAN CELL VOLUME 90.7 fL CALC (80.0-100.0); MEAN CORPUSCULAR HGB 28.8 pG CALC (26.0-32.0); MEAN CORPUSCULAR HGB CONC 31.7 g/dL CAL (32.0-36.0); MONO% 6.9 % (2-13); NEUT# 5.73 thou/uL (2.00-7.15); NEUT% 68.9 % (42-76); RED BLOOD COUNT 4.73 mill/uL (4.20-5.60); RED CELL DISTRI WIDTH 14.1 % (11.5-15.5)
[2024-01-14 08:11] LABS: ALBUMIN 4.5 g/dL (3.2-5.0); ALKALINE PHOSPHATASE 128 u/l (38-126); ANION GAP 12 (6-22 (CALC)); BILIRUBIN, TOTAL 0.4 mg/dL (0.02-1.3); BUN 13 mg/dL (8-23); BUN/CREATININE RATIO 18 (12-20 (CALC)); CARBON DIOXIDE 25 mmol/l (22-30); CHLORIDE 107 mmol/l (95-108); CREATININE 0.8 mg/dL (0.5-1.0); ESTIMATED GFR 81 ML/MIN (>=90 (CALC)); POTASSIUM 3.5 mmol/l (3.5-5.1); SGOT/AST 33 u/l (9-36); SODIUM 141 mmol/l (137-146); TOTAL PROTEIN 8.1 g/dL (6.3-8.2)
[2024-01-14] MEDS ORDERED: VENTOLIN HFA108 MCG PO (08:27)
[2024-01-14] MEDS ORDERED: PREDNISONE50 MG PO (08:27)
== END 2024-01-14 08:44 | disposition home or self-care (01) ==
LOC: ED 06:48
PROVIDERS: Family Medicine
DX: J06.9 Acute upper respiratory infection, unspecified (principal); I10 Essential (primary) hypertension; E11.9 Type 2 diabetes mellitus without complications; E78.00 Pure hypercholesterolemia, unspecified; K21.9 Gastro-esophageal reflux disease without esophagitis; F41.9 Anxiety disorder, unspecified; F32.A Depression, unspecified; Z87.11 Personal history of peptic ulcer disease; Z89.511 Acquired absence of right leg below knee; Z95.5 Presence of coronary angioplasty implant and graft; Z79.4 Long term (current) use of insulin; Z20.822 Contact with and (suspected) exposure to COVID-19

== ENCOUNTER 2024-04-23 19:30 | Emergency (ER) | payer MEDICARE, MEDICAID ==
[~2024-04-23] VITALS: Ht 157.5 cm; Wt 81.0 kg
[~2024-04-23 19:30] MED LIST changes: +PREDNISONE50 MG PO; +VENTOLIN HFA108 MCG PO
[2024-04-23] MEDS ORDERED: IBUPROFEN 600 MG/TAB PO ONE (19:40)
[2024-04-23] MEDS ORDERED: SODIUM CHLORIDE 0.9% 1,000 ML IV ONE (19:40)
[2024-04-23] MEDS ORDERED: ACETAMINOPHEN 500 MG TAB PO ONE (19:40)
[2024-04-23 20:12] LABS: BASO% 0.4 % (0-3); EOS% 4.7 % (0-8); HEMATOCRIT 47.3 % (37.0-47.0); IMMATURE GRANULOCYTES 0.1 % (0.0-5.0); LYMPH% 5.5 % (15-41); MEAN CELL VOLUME 93.1 fL CALC (80.0-100.0); MEAN CORPUSCULAR HGB 29.5 pG CALC (26.0-32.0); MEAN CORPUSCULAR HGB CONC 31.7 g/dL CAL (32.0-36.0); MONO% 7.3 % (2-13); NEUT# 7.39 thou/uL (2.00-7.15); RED BLOOD COUNT 5.08 mill/uL (4.20-5.60); RED CELL DISTRI WIDTH 13.6 % (11.5-15.5)
[2024-04-23] MEDS ORDERED: OSELTAMIVIR PHOSPHATE 75 MG/TAB CAP PO ONE (20:50)
[2024-04-23 20:53] LABS: URINE BILIRUBIN - DIPSTICK Negative (NEGATIVE); URINE BLOOD DIPSTICK Trace-lysed (NEGATIVE); URINE COLOR Straw; URINE GLUCOSE - DIPSTICK >=1000 mg/dL (NEGATIVE); URINE KETONE Negative (NEGATIVE); URINE LEUK ESTERASE Negative (NEGATIVE); URINE NITRITE - DIPSTICK Negative (Negative); URINE PROTEIN - DIPSTICK 30 mg/dL (NEG-TRACE); URINE UROBILINOGEN - DIPSTICK 0.2 E.U./dL (0.2)
[2024-04-23 20:55] LABS: ALBUMIN 4.4 g/dL (3.2-5.0); BILIRUBIN, TOTAL 0.5 mg/dL (0.02-1.3); CREATININE 0.7 mg/dL (0.5-1.0); POTASSIUM 3.7 mmol/l (3.5-5.1); TOTAL PROTEIN 7.5 g/dL (6.3-8.2)
[2024-04-23 20:57] LABS: URINE RBC 0-2 RBC/hpf (0-5)
[2024-04-23 20:58] LABS: URINE SQUAMOUS EPITHELIAL CELL RARE EPI/hpf (0-FEW); URINE YEAST FEW hpf
[2024-04-23 20:59] VITALS: BP 129/71
[2024-04-23] MEDS ORDERED: TAM75CAP PO (21:01)
[2024-04-23 21:06] VITALS: BP 107/62
[2024-04-23 21:42] VITALS: BP 107/62
== END 2024-04-23 21:43 | disposition home or self-care (01) ==
LOC: ED 19:30
PROVIDERS: Family Medicine
DX: J11.1 Influenza due to unidentified influenza virus with other respiratory manifestations (principal); I10 Essential (primary) hypertension; E11.9 Type 2 diabetes mellitus without complications; F41.9 Anxiety disorder, unspecified; F32.A Depression, unspecified; E78.00 Pure hypercholesterolemia, unspecified; Z89.511 Acquired absence of right leg below knee; Z79.4 Long term (current) use of insulin; Z20.822 Contact with and (suspected) exposure to COVID-19